=== PATIENT | female | born 1950 | race Caucasian/White ===

== ENCOUNTER 2018-12-05 03:38 | Inpatient (IN) ==
[2018-12-05] MEDS ORDERED: PEPCID IV ONE (04:00)
[2018-12-05] MEDS ORDERED: NS 1,000 ML IV ONE (04:00)
[2018-12-05] MEDS ORDERED: SODIUM CHLORIDE 0.9% INJ ONE (04:00)
--- NOTE | 2018-12-05 04:46 | PROVIDER DOCUMENTATION ---
HPI-General Adult - General Chief Complaint: GI Bleed Stated Complaint: gi bleed Time Seen by Provider: 12/05/18 03:50 Source: patient, EMS Allergies/Adverse Reactions: Patient Allergies Allergy/AdvReac Type Severity Reaction Status Date / Time codeine Allergy ITCHING Verified 07/20/16 15:40 Home Medications: Home Medication List Medication Instructions Recorded Confirmed Last Taken Type Cyanocobalamin 1,000 microgm IM Q7D #0 vial 02/07/16 12/05/18 06/06/18 Rx Docusate Sodium [Colace] 100 mg PO DAILY #0 capsule 02/07/16 12/05/18 06/06/18 Rx Folic Acid 1 mg PO DAILY #0 tablet 02/07/16 12/05/18 06/06/18 Rx Magnesium Hydroxide [Milk of 30 ml PO DAILY PRN PRN #0 udc 02/07/16 12/05/18 Rx Magnesia] Tizanidine [Zanaflex] 4 mg PO QHS #0 tablet 02/07/16 12/05/18 06/06/18 Rx Ranitidine [Zantac] 150 mg PO BID #0 07/22/16 12/05/18 06/06/18 Rx Multivitamin with Iron [Daily 1 each PO DAILY #30 tablet 08/19/16 12/05/1806/06 Rx Vitamin + Iron] Iron Carbonyl/Ascorbic Acid 1 each PO DAILY tablet 05/30/18 12/05/18 06/06/18 Rx [Icar-C] Thiamine [Vitamin B-1] 100 mg PO DAILY tablet 05/30/18 12/05/18 06/06/18 Rx Aripiprazole [Abilify] 2 mg PO QAM #30 tab 06/01/18 12/05/18 06/06/18 Rx Duloxetine [Cymbalta] 60 mg PO DAILY #30 capsule 06/01/18 12/05/18 06/06/18 Rx Trazodone [Desyrel] 50 mg PO QHS #30 tab 06/01/18 12/05/18 06/06/18 Rx Mirtazapine [Remeron] 15 mg PO QHS 12/05/18 12/05/18 Unknown History Polyethylene Glycol 3350 [Miralax] 17 gm PO DAILY 12/05/18 12/05/18 Unknown History - History of Present Illness -Gen Adult Nature of Presenting Problems: 68 y/o F presents to the ED complaining of emesis. Per pt's SNF pt began to complain of abdominal pain and then had several bouts of coffee ground emesis. no fever, no diarrhea, no melena. Does not taken any blood thinners. No fever. Review of Systems - Adult - REVIEW OF SYSTEMS - ADULT Constitutional: denies: chills, fever Eyes: reports: no symptoms reported Ears, Nose, Mouth & Throat: reports: no symptoms reported Cardiovascular: reports: no symptoms reported Respiratory: reports: no symptoms reported Gastrointestinal: reports: abdominal pain, nausea, vomiting. denies: no symptoms reported, diarrhea, rectal bleeding Genitourinary: reports: no symptoms reported Musculoskeletal: reports: no symptoms reported Integumentary: reports: no symptoms reported Neurological: reports: no symptoms reported Psychiatric: reports: no symptoms reported Endocrine: reports: no symptoms reported Hematologic/Lymphatic: reports: no symptoms reported Allergic/Immunologic: reports: no symptoms reported All Other Systems: Reviewed and Negative Past History - Adult - PAST MEDICAL HISTORY-ADULT Review of Records: reports: Old Records Reviewed, Nursing Assessment Review, Medications Reviewed, Social history reviewed & non-contributory. Major Childhood Illnesses: reports: denies history Cardiovascular: reports: CHF Respiratory: reports: denies history Gastrointestinal: reports: denies history Obstetrical/Gynecological: reports: denies history Genitourinary: reports: denies history Musculoskeletal: reports: arthritis, chronic pain, intervertebral disc disease, neck/back injury, osteoporosis, spinal fracture Neurological: reports: denies history Psychiatric: reports: depression, psychiatric problems Endocrine/Immune: reports: denies history Other Conditions: reports: denies history - PRIOR SURGERIES/PROCEDURES Surgical/Procedure History: reports: none - IMMUNIZATION STATUS Childhood Immunizations: See Nurse Assessment Flu Vaccine: See Nurse Assessment - FAMILY HISTORY Family History: reviewed, not pertinent Physical Exam-General - PHYSICAL EXAM-ADULT Initial Vital Signs Reviewed: Yes - CONSTITUTIONAL General Appearance: appears well, alert, no apparent distress - EYES Eyes: PERRL/EOMI - HEAD, EARS, NOSE, MOUTH & THROAT HENMT: normocephalic/atraumatic, moist mucous membranes, normal ENT inspection - NECK Neck: non-tender, full range of motion - RESPIRATORY Respiratory: chest non-tender, lungs clear, normal breath sounds, no respiratory distress - CARDIOVASCULAR Cardiovascular: normal peripheral pulses, regular rate, rhythm, no edema, no JVD - GASTROINTESTINAL (ABDOMEN) Abdominal Exam: soft, tenderness (mild epigastric ttp) - MUSCULOSKELETAL Back Exam: normal inspection, no CVA tenderness, no vertebral tenderness Extremity: normal range of motion, non-tender - SKIN Integumentary: normal color, normal turgor, warm/dry - NEUROLOGIC Neurologic: grossly normal, no motor/sensory deficits - PSYCHIATRIC Psych/Mental Status: normal mood/affect, normal thought content, normal thought process, oriented x 3 Progress - PLAN OF CARE/RESULTS Progress/Plan/Lab Results: Vital Signs - 8 hr 12/05/18 04:06 Pulse Rate 110 H Respiratory Rate 18 Blood Pressure 137/92 O2 Sat by Pulse Oximetry 96 Orders Category Date Time Status IV Insertion ORDERED Care 12/05/18 04:00 Completed CBC WITH ELECTRONIC DIFF [HEME] Stat Lab 12/05/18 04:01 Results COMPREHENSIVE METABOLIC PANEL [CHEM] Stat Lab 12/05/18 04:01 Received LIPASE [CHEM] Stat Lab 12/05/18 04:01 Received OCCULT BLOOD SCREENING [STOOL] Stat Lab 12/05/18 04:39 Uncollected PROTIME WITH INR [COAG] Stat Lab 12/05/18 04:01 Received TYPE & SCREEN [BBK] Stat Lab 12/05/18 04:01 Received 0.9% Sodium Chloride Inj [Ns] 1,000 ml Med 12/05/18 04:00 Active IV 999 mls/hr Famotidine [Pepcid] Med 12/05/18 04:00 Discontinued 20 mg IV NOW ONE Sodium Chloride 0.9% Med 12/05/18 04:00 Discontinued 5 - 10 ml INJ NOW ONE abdominal pain with coffee ground emesis will further evaluate for causes including but not limited to gi bleed, gastritis, pancreatitis, pud, colitis Result Diagrams: 12/05/18 04:01 12/05/18 04:01 - REASSESSMENT Reassessment #1 Status: improving (continued mild epigastric pain but improving, no emesis in the ED. Guiac + with mild anemia but stable vitals. Presentation concering for GI bleed will admit for further evaluation. Discussed case with Dr. Reyes, Hospitalist who will see and admit pt.) Departure - Departure Date of Disposition Decision: 12/05/18 Time of Disposition Decision: 06:14 DIAGNOSIS: GI bleed Qualifiers: GI bleed type/associated pathology: unspecified gastrointestinal hemorrhage type Qualified Code(s): K92.2 - Gastrointestinal hemorrhage, unspecified Disposition: ADMITTED INPATIENT 09 Certified Medical Emergency: Emergent Condition: Fair - Critical Care Note This patient required my direct & personal management of CC.: No Attestation - Physician/ ISIAH Attestation Patient care was provided by Advanced Practice Provider:: No The physician spent face to face time with patient:: Yes Advanced Practice Provider documentation review:: Supervising physician onsite and consulted in the evaluation and care of this patient. The physician did have a face to face encounter with the patient.
[2018-12-05 04:53] LABS: BASO# 0.02 X1000 (0.0-0.2); BASO% 0.2 % (0.0-0.8); EOS# 0.12 X1000 (0.0-0.7); EOS% 1.3 % (0.0-10.0); HEMATOCRIT 31.2 % (37.0-47.0); HEMOGLOBIN 9.8 g/dL (12.0-16.0); IMM GRAN# 0.02 X1000 (0.0-0.04); IMM GRAN% 0.2 % (0.0-0.5); LYMPH# 0.99 X1000 (1.2-3.4); LYMPH% 10.5 % (20.5-51.1); MCH 28.6 PG (27-31); MCHC 31.4 g/dL (33-37); MONO# 0.39 X1000 (0.11-0.59); MONO% 4.1 % (1.7-9.3); MPV 9.3 FL (7.4-10.4); NEUT# 7.89 X1000 (1.4-6.5); NEUT% 83.7 % (42.2-75.2); PLT 383 X1000 (130-400); RBC 3.43 XMIL (4.2-5.4); WBC 9.43 X1000 (4.8-10.8)
[2018-12-05 04:56] LABS: INR 0.91
[2018-12-05 05:08] LABS: ALB/GLOB RATIO 0.9; ALBUMIN 3.4 g/dL (3.5-5.0); CALCIUM 9.5 mg/dL (8.8-10.2); CREATININE 1.3 mg/dL (0.5-0.9); POTASSIUM 4.7 mmol/L (3.5-5.1); TOTAL BILIRUBIN 0.21 mg/dL (0.20-1.00); TOTAL PROTEIN 7.3 g/dL (6.3-8.3)
[2018-12-05] MEDS ORDERED: MORPHINE IV ONE (06:15)
[2018-12-05] MEDS ORDERED: ZOFRAN IV ONE (06:15)
[2018-12-05] MEDS: PROTONIX 80 MG in NS 80 ML IV SCH ×2 (07:55→18:30)
[2018-12-05] MEDS ORDERED: TYLENOL PO PRN (07:57)
[2018-12-05] MEDS ORDERED: NS 1,000 ML IV SCH ×2 (08:00→12:45)
[2018-12-05] MEDS ORDERED: CARAFATE LIQUID PO SCH (08:00)
--- NOTE | 2018-12-05 08:20 | Diag Imaging Result Doc PS360 ---
EXAM: FLAT/UPRIGHT ABD/1 VIEW CHEST HISTORY: sob; abd pain TECHNIQUE: Flat and upright with chest, three views COMPARISON: 06/07/2018 FINDINGS: There is a large hiatal hernia. The lungs are well expanded. Mild increased interstitial markings. No free air beneath the diaphragm. No bowel obstruction although there is stool throughout the colon. No organomegaly. Long-standing arthritis to the right hip. There has been orthopedic surgery to each hip. There are multiple compression fractures in the thoracic and lumbar spine. IMPRESSION: 1.Small bilateral infiltrates/pulmonary edema 2.Constipation 3.Large hiatal hernia Electronically signed by James Rey 12/05/2018 8:17 AM
[2018-12-05 08:27] LABS: IRON SATURATION 16 %; TIBC 222 ug/dL; TOTAL IRON 36 ug/dL (49-151); UNBOUND IRON 186 ug/dL (112-346)
--- NOTE | 2018-12-05 08:50 | EKG Report ---
Test Performed on : 12/05/2018 08:38:15 AM Test Reason : tachycardia Blood Pressure : / mmHG Vent. Rate : 114 BPM Atrial Rate : 114 BPM P-R Int : 150 ms QRS Dur : 066 ms QT Int : 322 ms P-R-T Axes : 016 -25 014 degrees QTc Int : 443 ms Sinus tachycardia. Possible Left atrial enlargement Borderline ECG When compared with ECG of 07-JUN-2018 08:35, premature ventricular complexes. are no longer present Criteria for Septal infarct are no longer present Nonspecific T wave abnormality no longer evident in Anterior leads Confirmed by Errol PARKER, Tom Allen ([id number]) on 12/05/2018 5:39:51 PM
[2018-12-05] MEDS: ABILIFY PO SCH (09:00)
[2018-12-05] MEDS ORDERED: FOLIC ACID PO SCH (09:00)
[2018-12-05] MEDS ORDERED: CYMBALTA PO SCH (09:00)
--- NOTE | 2018-12-05 09:21 | Diag Imaging Result Doc PS360 ---
EXAM: CT THORAX/ABD/PELVIS W/O CON HISTORY: sob; abd pain TECHNIQUE: 1. CT chest without contrast 2. CT abdomen and pelvis without contrast COMPARISON: Chest compared to 05/27/2018 FINDINGS: Chest: There is a large hiatal hernia. Trace pleural fluid. No cardiomegaly. Prominent atherosclerosis. Atelectasis versus tiny infiltrates posteriorly in the left upper lobe. There is scarring in the left lower lobe. Scarring versus atelectasis is also present in the right lower lobe. No consolidation. There are multiple lower thoracic compression fractures. Abdomen and pelvis: No focal hepatic abnormality identified on this noncontrasted exam. Normal spleen. No calcified gallstones or adjacent inflammation. Normal pancreas and adrenal glands. No renal stones. No renal mass identified. No hydronephrosis. There is stool throughout the colon. The bowel loops are not dilated. No inflammation in the right lower quadrant. No abscess. The urinary bladder is distended and appears normal. Uterus is not enlarged. There is metallic artifact in the pelvis from orthopedic hardware in the hips. The bones are osteopenic. There are compression fractures of L1, L2, and L4 vertebra. IMPRESSION: Chest: 1. Large hiatal hernia 2. Trace pleural fluid 3. Bilateral atelectasis and fibrosis with questionable small infiltrates 4. Multiple thoracic compression fractures Abdomen and pelvis: 1. Mild constipation 2. The bones are osteopenic and there are multiple compression fractures This exam was performed using automated exposure control, adjustment of mA or kV according to patient size, and/or use of iterative reconstruction technique. Electronically signed by James Rey 12/05/2018 9:18 AM
[2018-12-05] MEDS: VITAMIN B-1 PO SCH (09:30)
[2018-12-05] MEDS: ZANTAC PO SCH ×2 (09:35→20:46)
[2018-12-05] MEDS: THERA M PLUS PO SCH (09:35)
[2018-12-05] MEDS: ICAR-C PO SCH (09:35)
[2018-12-05] MEDS: COLACE PO SCH (09:45)
[2018-12-05] MEDS: MIRALAX PO SCH (09:50)
[2018-12-05] MEDS: ATROVENT NEB INH SCH ×2 (10:14→15:49)
[2018-12-05] MEDS: XOPENEX NEB INH SCH ×2 (10:15→15:50)
[2018-12-05 10:54] LABS: HEMATOCRIT 27.5 % (37.0-47.0); HEMOGLOBIN 8.4 g/dL (12.0-16.0)
[2018-12-05] MEDS ORDERED: MORPHINE IV PRN (12:39)
[2018-12-05 12:43] LABS: URINE SOURCE CATH
--- NOTE | 2018-12-05 12:49 | HISTORY AND PHYSICAL ---
PRIMARY CARE PROVIDER: Dr. George. CHIEF COMPLAINT: Nausea, vomiting, coffee-ground emesis. HISTORY OF PRESENT ILLNESS: Ms. Gay Rosales is a 68-year-old, female, with a medical history of hypertension, some psychiatric issues, questionable congestive heart failure, GERD, large hiatal hernia, esophageal stricture with duodenal ulcer, CKD stage IIIA, history of alcohol use, severe osteoporosis with multiple thoracic lumbar fractures, and iron-deficiency anemia who presents with complaint of abdominal pain in the bilateral upper quadrants with nausea and vomiting that started around 6:00 p.m. up until 2:00 a.m. that was coffee ground in color. She continues with the nausea and the stomach pains. She had a stool sample sent that showed positive for occult blood. Her hemoglobin and hematocrit are slightly low at 9 and 31. Currently, vital signs are stable. She is a little tachycardic. Imaging does not show any obvious source of bleed, but there is a history of EGD February [address] Camilo that showed she had a duodenal ulcer which could be a source. She is not on any anticoagulant. She has not been taking ibuprofen or any other erosive type medication. She actually stopped drinking May of 2018. She states that she did have one other spell where she vomited coffee-ground emesis a few months ago and not too long after she started staying at her [facility] in May of 2018. She still has right upper and left upper quadrant abdominal pain. We will admit. Could be a duodenal ulcer that is bleeding, so we will consult Dr. Camilo who has seen this patient before. We will transfer to [facility] for close observation. Start her on some clear liquids and Protonix drip. PAST MEDICAL HISTORY: 1. Hypertension. 2. Psychiatric issues. 3. Questionable congestive heart failure. 4. GERD with large hiatal hernia. 5. 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 6. Esophageal stricture February of 2016. 7. History of alcohol abuse. Quit May of 2018. 8. Osteoporosis with chronic left sacral and inferior pubic rami fracture and multiple thoracolumbar compression fractures. 9. Iron-deficiency anemia. May of 2018 received 2 packs of red blood cells. 10.CKD stage IIIA. PAST SURGICAL HISTORY: 1. Bilateral hip replacement. 2. Appendectomy. 3. Tonsillectomy. 4. Tubal ligation. 5. EGD by Dr. Camilo February of 2016 for food impaction. Results showed severe esophagitis, large hiatal hernia, esophageal stricture, duodenal ulcer and duodenal stenosis. SOCIAL HISTORY: Quit smoking in 2011, but prior to that she smoked on and off since the age of 19, about a pack per day. She was drinking around 3 ounces of alcohol usually Tequila with a ismael daily upon until May of 2018. Denies any illicit drug use. She has currently been living in [facility] since May of 2018. FAMILY HISTORY: Lymphoma in her dad. But no heart disease or diabetes in first-degree relatives. ALLERGIES: Codeine. HOME MEDICATIONS: 1. Remeron 15 mg p.o. nightly. 2. MiraLAX 17 g p.o. daily. 3. Zanaflex 4 mg p.o. nightly. 4. Trazodone 50 mg p.o. nightly. 5. Abilify 2 mg p.o. daily. 6. Cyanocobalamin 1000 mcg IM q.7 days. 7. Colace 100 mg p.o. daily. 8. Cymbalta 60 mg p.o. daily. 9. Folic acid 1 mg p.o. daily. 10.ICAR-C 1 tablet p.o. daily. 11.Milk of Magnesia as needed. 12.Multivitamin with iron once daily. 13.Zantac 150 mg p.o. b.i.d. 14.Vitamin B1 Thiamine 100 mg p.o. daily. REVIEW OF SYSTEMS: A 14 point review of systems are completed and negative except as those mentioned above in HPI. Positive are nausea, vomiting of coffee-ground emesis from 6:00 p.m. to 2:00 a.m. bilateral upper quadrant pain that has been on and off. Bowel movements about once every other day, sometimes with incontinence. Small bowel movement today. Appetite has been around 50% or less per meal t.i.d. She states she has gained weight in the last six months. She apparently has gone from 77 pounds to 101 pounds. She denies any fever or chills, or coughing up any phlegm. She denies any shortness of breath or chest pain. PHYSICAL EXAM: VITAL SIGNS: Temperature 98.6 degrees Fahrenheit, heart rate 113 sinus tachycardia, respiratory rate 18, blood pressure 139/89. O2 saturation 97% on 2 L nasal cannula. Height: 5 feet 1 inch tall. Weight 101 pounds. BMI of 19.1. GENERAL: Ms. Gay Rosales is a 68-year-old, female. She is in no acute distress. She is able to answers questions appropriately. HEENT: Atraumatic, normocephalic. Pupils are equal, round and reactive to light. Extraocular movements intact. Mucous membranes are dry. NECK: Trachea is midline. CARDIOVASCULAR: S1, S2, tachycardic rate rhythm. No rubs, gallops or murmurs. No lower extremity edema. Plus 2 dorsalis and radial pulses. Negative JVD or carotid bruits. PULMONARY: Clear to auscultation with bilateral breath sounds. No accessory muscle use or work of breathing noted. Tolerating 2 L nasal cannula. GASTROINTESTINAL: Soft. Tender bilateral upper quadrants. Nondistended. Positive bowel sounds x4 but hypoactive. EXTREMITIES: Moves all extremities equally with decreased range of motion. Generalized weakness noted. NEUROLOGIC: Oriented x3. Follows commands. Sensory is intact. SKIN: Pale, warm, dry and intact. LABORATORY DATA: White blood cells 9.0, hemoglobin 9.0, hematocrit 31, platelet count 383,000. INR 0.91. PTT is 33. Sodium 141, potassium 4.7, BUN 23, creatinine 1.3, glucose 109, calcium 9.5. Iron is 36. Total iron binding capacity 222. Saturation 16. Unsaturated iron binding is 186. Ferritin 58. Bilirubin 0.21. AST 16. ALT 9. ProBNP 1954. Albumin 3.4. Lipase is 19. Vitamin B12 greater than 2000. Folate greater than 40. IMAGIN. Chest and abdominal x-ray: Impression: Small bilateral infiltrates or pulmonary edema, constipation, large hiatal hernia. 2. CT of the chest, abdomen and pelvis without contrast shows in the chest large hiatal hernia, trace pleural fluid, bilateral atelectasis and fibrosis with questionable small infiltrates. Multiple thoracic compression fractures. Abdomen and pelvis shows mild constipation. The bones are also osteopenic and there are multiple compression fractures. 3. EKG sinus tachycardia. Rate is 114, QTc 443. IMPRESSION AND PLAN: 1. Gastrointestinal bleed likely due to duodenal ulcer as she has had a history of duodenal ulcer. CT showed constipation. X-ray shows constipation. She has been having coffee-ground emesis since between 6:00 p.m. yesterday to 2:00 a.m. this morning. Improved with Zofran and Pepcid that she received IV. She is still having pain in the bilateral upper quadrants. She has been started on Protonix drip, Carafate, and clear liquids. Gastroenterology, Dr. Camilo, who has seen her in the past will be consulted. We will do serial hemoglobin and hematocrit and transfuse for hemoglobin less than 8.0. 2. Iron-deficiency anemia with current blood-loss anemia secondary to GI bleed. She has a current type and screen. Blood pressure is stable. No need for transfusion at this time. We will continue her iron supplementations. Her iron level is slightly low at 36. We will stop her folic acid as her folate is greater than 40. Vitamin B12 is also greater than 2000. 3. Acute kidney injury on top of chronic kidney disease stage IIIA. BUN and creatinine are 23 and 1.3 with a GFR of 40. Baseline is 0.9 up to 1.2 on the creatinine. She will receive gentle IV fluid hydration and we will repeat in the morning. 4. Questionable congestive heart failure. There is no echocardiogram to review. ProBNP is 1954. There was some question of infiltrate, possible pulmonary edema on imaging. So we will get an echocardiogram to fully evaluate. There were no crackles upon auscultation. She does not take any diuretics at home. 5. Protein calorie malnutrition. She is actually improved. She went from 77 pounds up to 101 pounds over the last six months. Albumin level is 3.4. She eats 50% or less per meal. We will continue to monitor. 6. Severe osteoporosis with multiple thoracolumbar compression fractures. Also chronic left sacral and inferior pubic rami fracture with repair of both hips in the past. No new fractures this admission. She has been started on a Proton-pump inhibitor this admission. May have to switch over to something else given the severe osteoporosis. 7. Gastroesophageal reflux disease with large hiatal hernia. She is on a Protonix drip. 8. Hypertension. No home medications for this. Blood pressure is finally stable. It was 150s to 160s and it is down to 130s now. We will monitor. 9. Psychiatric issues. She is likely with depression. She takes Abilify, Desyrel, Remeron and Cymbalta. We will continue those medications. 10.Deep venous thrombosis prophylaxis. SCDs. Dictated by CHAKA Coburn for Maggi May MD cc: MD Etelvina Vivas CRNP Katherine Takundwa, MD
[2018-12-05 12:53] LABS: BILIRUBIN URINE NEGATIVE (NEGATIVE); BLOOD URINE NEGATIVE (NEGATIVE); COLOR YELLOW; GLUCOSE URINE NEGATIVE (NEGATIVE); KETONE URINE NEGATIVE (NEGATIVE); LEUKOCYTES URINE LARGE (NEGATIVE); NITRITE URINE NEGATIVE (NEGATIVE); PROTEIN URINE NEGATIVE (NEGATIVE); TURBIDITY URINE HAZY (CLEAR); UROBILINOGEN URINE NORMAL (NORMAL)
[2018-12-05 12:55] LABS: UR EPITHELIAL CELLS <10 /HPF (<10); URINE BACTERIA 4+ /HPF; URINE RBC <10 /HPF (<10); URINE WBC TNTC /HPF (<10)
[2018-12-05 13:00] LABS: UR CREAT RANDOM 34.9 mg/dL (11-20)
[2018-12-05] MEDS: ZOFRAN IV PRN ×2 (14:09→20:44)
[2018-12-05 15:39] LABS: HEMATOCRIT 24.4 % (37.0-47.0); HEMOGLOBIN 7.7 g/dL (12.0-16.0)
[2018-12-05] MEDS ORDERED: LASIX IV ONE (15:45)
--- NOTE | 2018-12-05 16:52 | ECHO REPORT ---
ORDER DATE: 12/05/2018 INDICATIONS: Chest pain, pulmonary edema, tachycardia. M-MODE MEASUREMENTS: Left ventricle end diastole: 3.2 cm. Left ventricle end systole: 1.8 cm. Posterior wall: 1.0 cm. Interventricular septum: 1.0 cm. Left atrium: 3.7 cm. Aortic root: 3.5 cm. SUMMARY OF 2-DIMENSIONAL IMAGIN. The left ventricular function is normal. Ejection fraction is estimated at 65% to 70%. No wall motion abnormality is noted. The patient appears to be tachycardic. The left ventricular function appears to be hyperdynamic. 2. The right ventricle appears to be normal. Left atrium may be slightly enlarged. There is no pericardial effusion. 3. Mitral valve shows calcification of the annulus. Color flow mapping indicates mild degree of regurgitation. 4. Aortic valve shows calcification of the cusp. Maximum gradient across the outflow tract of the left ventricle is 17 mmHg. Mean gradient is 10 mmHg. That would just indicated some thickening of the aortic valve with sclerosis. No definite significant stenosis. 5. Pulse wave Doppler of mitral inflow shows reversal of the E/A ratio. Ratio is 0.7. 6. Tissue Doppler of septal and lateral mitral annulus averages 6 cm. 7. There is impaired left ventricular relaxation. 8. Tricuspid valve shows mild degree of regurgitation. 9. Pulmonary artery pressure estimated at 34 mmHg. 10.Pulmonic valve is normal. 11.There is no pericardial effusion, mass and no thrombus. SUMMARY: In summary, this study shows: 1. Hyperdynamic left ventricle. 2. Sclerosis of the aortic valve without definite stenosis. 3. Impaired left ventricular relaxation. 4. Pulmonary pressure of 34 mmHg. Clinical correlation recommended. cc: MD Etelvina Oates CRNP
[2018-12-05] MEDS: ZOSYN 3.375 GM in NS 50 ML IV SCH ×3 (16:53→23:25)
[2018-12-05] MEDS: ZANAFLEX PO SCH (20:44)
[2018-12-05] MEDS: DESYREL PO SCH (20:46)
[2018-12-05] MEDS: REMERON PO SCH (20:46)
[2018-12-05] MEDS: MORPHINE IV PRN (21:10)
--- NOTE | 2018-12-06 00:03 | CONSULTATION ---
DATE OF CONSULTATION: 12/05/2018 REASON FOR CONSULTATION: Nausea, vomiting, hematemesis. HISTORY OF PRESENT ILLNESS: This is a 68-year-old white female, who reports onset of symptoms yesterday evening around 6 p.m. She reports multiple episodes of emesis last evening, with associated abdominal pain. She had reported dark emesis, described as coffee ground. She denies fevers. She denies blood in her stool. She does report constipation versus diarrhea. She denies reflux or heartburn. She takes Zantac at home. She resides at [facility]. On evaluation, she was found to have mild anemia. Hemoccult of emesis was positive. PAST MEDICAL HISTORY: Hypertension, psychiatric issues, congestive heart failure, GERD, hiatal hernia, history of duodenal ulcer in February 2016, history of esophageal stricture, with dilation in February 2016, history of alcohol abuse, reported quitting in May 2018, osteoporosis, history of anemia, history of chronic kidney disease. PAST SURGICAL HISTORY: Bilateral hip replacement, appendectomy, tonsillectomy, tubal ligation. EGD in [address] Lubin showed foreign body removal, esophagitis, hiatal hernia, esophageal stricture, duodenal ulcer. ALLERGIES: Codeine, causing itching. HOME MEDICATIONS: Abilify 2 mg daily, vitamin B12 IM every 7 days, Colace 100 mg daily, Cymbalta 60 mg daily, folic acid 1 mg daily, iron 1 daily, milk of magnesia 30 mL as needed, Remeron 15 mg every night, multivitamin with iron daily, MiraLAX 17 g daily, Zantac 150 mg twice a day, vitamin B1 daily, Zanaflex 4 mg every night, Desyrel 50 mg every night. SOCIAL HISTORY: No reported tobacco use. History of alcohol use, apparently quit in May 2018. She currently resides at [facility]. REVIEW OF SYSTEMS: Per history of present illness. PHYSICAL EXAMINATION: Vital Signs: Temperature 98.2 degrees, pulse 109, respirations 22, blood pressure 126/69. General: The patient is awake and alert. No acute distress. HEENT: Pupils equal, round, reactive to light. Sclerae nonicteric. Conjunctiva pale. Skin is pale. Cardiovascular: Regular rate and rhythm. Pulmonary: Lung sounds essentially clear bilaterally. Abdomen: Soft, with some tenderness to palpation. Otherwise, positive bowel sounds. Extremities: No lower extremity edema noted. Neurologically: Cranial nerves 2-12 grossly intact. LABORATORY: Hematology: WBC 9.43, hemoglobin 7.7, hematocrit 24.4, MCV 91.0, platelet 383,000. Coagulation: Pro time 13.0, INR 0.91, PTT 33. Chemistry: Sodium 141, potassium 4.7, chloride 105, CO2 of 23, BUN 23, creatinine 1.3, glucose 109, iron 36, TIBC 222, percent saturation 16, total bilirubin 0.21, AST 16, ALT 9, alkaline phosphatase 101, proBNP 1954, albumin 3.4, vitamin B12 greater than 2000, folate greater than 40. ASSESSMENT AND PLAN: 1. Hematemesis. 2. Anemia. 3. History of duodenal ulcer in 2016. 4. Chronic kidney disease versus acute kidney injury. 5. Protein calorie malnutrition. 6. Iron deficiency anemia. Patient's hemoglobin and hematocrit have dropped since admission. We will transfuse 2 units of packed red blood cells, continue proton pump inhibitor, monitor for any further active bleeding. We had initially planned due to OR scheduling to proceed with EGD on Wednesday, but this may have to be done sooner if she has any active bleeding or hemoglobin and hematocrit drop further. Again, we will transfuse 2 units of packed red blood cells. Further plans to be made according to her progress. I have discussed this case with Dr. Lubin. Thank you for this consultation. Dictated by CHAKA Khan for Layo Lubin MD cc: CHAKA Rodriguez MD
[2018-12-06] MEDS: XOPENEX NEB INH SCH ×6 (00:32→21:46)
[2018-12-06] MEDS: ATROVENT NEB INH SCH ×6 (00:32→21:46)
[2018-12-06] MEDS: MORPHINE IV PRN ×3 (03:24→16:03)
[2018-12-06] MEDS: PROTONIX 80 MG in NS 80 ML IV SCH ×4 (04:01→22:42)
[2018-12-06] MEDS: ZOSYN 3.375 GM in NS 50 ML IV SCH ×5 (04:01→21:26)
[2018-12-06 04:42] LABS: INR 1.05; PROTIME 14.5 Seconds (11.0-16.0)
[2018-12-06 04:43] LABS: PTT 35.6 Seconds (22.3-41.8)
[2018-12-06 05:03] LABS: ALB/GLOB RATIO 0.9; ALBUMIN 2.9 g/dL (3.5-5.0); CREATININE 1.4 mg/dL (0.5-0.9); MAGNESIUM 1.8 mg/dL (1.5-2.7); POTASSIUM 4.4 mmol/L (3.5-5.1); TOTAL BILIRUBIN 0.62 mg/dL (0.20-1.00); TOTAL PROTEIN 6.2 g/dL (6.3-8.3)
[2018-12-06 05:06] LABS: BASO# 0.01 X1000 (0.0-0.2); BASO% 0.1 % (0.0-0.8); EOS# 0.21 X1000 (0.0-0.7); EOS% 2.8 % (0.0-10.0); HEMATOCRIT 33.7 % (37.0-47.0); LYMPH# 2.01 X1000 (1.2-3.4); LYMPH% 26.8 % (20.5-51.1); MCH 29.6 PG (27-31); MCHC 32.6 g/dL (33-37); MCV 90.6 FL (81-99); MONO# 0.55 X1000 (0.11-0.59); MONO% 7.3 % (1.7-9.3); MPV 8.9 FL (7.4-10.4); NEUT# 4.72 X1000 (1.4-6.5); PLT 245 X1000 (130-400); RBC 3.72 XMIL (4.2-5.4); RDW 15.1 % (11.5-14.5)
[2018-12-06] MEDS: ABILIFY PO SCH (08:41)
[2018-12-06] MEDS: THERA M PLUS PO SCH (08:41)
[2018-12-06] MEDS: ZANTAC PO SCH ×2 (08:41→20:34)
[2018-12-06] MEDS: MIRALAX PO SCH (08:41)
[2018-12-06] MEDS: ICAR-C PO SCH (08:41)
[2018-12-06] MEDS: COLACE PO SCH (08:42)
[2018-12-06] MEDS: CYMBALTA PO SCH (08:42)
[2018-12-06] MEDS: VITAMIN B-1 PO SCH (08:42)
--- NOTE | 2018-12-06 08:46 | PROGRESS NOTE ---
DATE: 12/06/2018 ECHOCARDIOGRAM: FINDINGS: 1. Hyperdynamic left ventricle. 2. Sclerosis of the aortic valve without definite stenosis. 3. Impaired left ventricular relaxation. 4. Pulmonary pressure of 34 mmHg. 5. Left ventricular ejection fraction estimated 65% to 70%. 6. No wall motion abnormality. 7. Right ventricle appeared normal. cc: Maximino Leija MD
--- NOTE | 2018-12-06 09:05 | PROGRESS NOTE ---
DATE: 12/06/2018 SUBJECTIVE: Ms. Rosales is a patient of Dr. Keagan Bolden and primary care provider also, Dr. George. She came in with nausea, vomiting and coffee-ground emesis. A 68 year old with past medical history of hypertension, some psychiatric issues, questionable congestive heart failure, gastroesophageal reflux disease, large hiatal hernia, esophageal stricture, duodenal ulcer, chronic kidney disease stage IIIA, history of alcohol use, severe osteoporosis, multiple thoracic lumbar fractures and iron deficiency anemia, who presented with complaints of abdominal pain bilateral upper quadrant with nausea and vomiting. She vomited some coffee-ground color. She has been having nausea and dyspepsia. She says she has not been able to eat very much for a length of time for several weeks. She has a history of having an EGD in February [address] Lubin. She had a duodenal ulcer which could have been the source of her bleed. She is not on any anticoagulant. She has not been taking any nonsteroidal anti-inflammatories, and actually stopped drinking alcohol in May 2018. She did have another spell. She vomited coffee-ground emesis a few months ago. She is staying at [facility] since May of 2018. PAST MEDICAL HISTORY: Once again, review of past medical history: 1. Hypertension. 2. Psychiatric issues. 3. Questionable congestive heart failure. 4. Gastroesophageal reflux disease with large hiatal hernia. 5. 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 6. Esophageal stricture of February 2016. 7. Alcohol abuse, quit in May 2018. 8. Osteoporosis with chronic left sacral and inferior pubic rami fracture, and multiple thoracolumbar compression fractures. 9. Iron deficiency anemia. In May of 2018, she received 2 packs of red blood cells. 10. Chronic kidney disease. PAST SURGICAL HISTORY: Bilateral hip replacement, appendectomy, tonsillectomy, tubal ligation. EGD per Dr. Lubin February 2016 for food impaction; result showed severe esophagitis, large hiatal hernia, esophageal stricture, duodenal ulcer and duodenal stenosis. CT of chest and abdomen and pelvis shows large hiatal hernia, trace pleural effusion, bilateral atelectasis, fibrosis, questionable small infiltrates, multiple thoracic compression fractures. Abdominal pelvis showed mild constipation. The bones are also osteopenic with multiple compression fractures. So, suspect a duodenal or upper gastrointestinal bleed. PHYSICAL EXAMINATION: Vital Signs: Today, she is awake and alert. She says she still is a little uncomfortable in the epigastric area. Temperature 98.3 degrees, pulse 91, respirations 18, blood pressure 118/65. Eyes: Pupils are equal and round. Lungs: Clear in all lung cortes. Cardiovascular exam: Regular rhythm and rate without murmur or S3. Abdomen: Soft. Skin: Warm and dry. : Urine output 800 mL. ASSESSMENT AND PLAN: 1. Hematemesis. 2. Anemia. Hematocrit when she came in was 31, hemoglobin 9.8. Hematocrit this morning is 33, hemoglobin 11. Note that hemoglobin had dropped down to 7.7. She was transfused I believe 2 units packed red blood cells. She is on proton pump inhibitor. Plan to do an EGD on Wednesday I believe, or sooner if she has any more aggressive bleeding. She reports she is hungry, so we will keep her on liquids for now unless Gastroenterology decides to advance it. 3. History of chronic kidney disease stage IIIA. Her creatinine is 1.4. Had good urine output. 4. Osteoporosis. Multiple compression fractures. Pelvic fractures which are old. 5. Iron deficiency anemia with current blood-loss anemia secondary to gastrointestinal bleed. 6. History of congestive heart failure. Echocardiogram: There is no old echocardiogram to review. She did have some pulmonary effusion on CT scan and some areas of questionable fibrosis. So, plan is to get an echocardiogram. 7. Protein calorie malnutrition, which apparently has improved. Albumin level is 3.4. She went from 77 pounds to 101 pounds over the last 6 months. 8. Gastroesophageal reflux disease. Large hiatal hernia. 9. Hypertension. Blood pressure appears well controlled. 10. Psychiatric issues which is likely depression. She is on Abilify, does reveal Remeron, Cymbalta. Will continue these medications. 11. Deep vein thrombosis prophylaxis on sequential compression devices. REVIEW OF HER ORDERS: She is on Remeron 15 mg at bedtime, Zanaflex 4 mg at bedtime, Desyrel 50 mg at bedtime, Abilify 2 mg q.a.m., Colace 100 mg a day, Cymbalta 60 mg a day ipratropium bromide 0.5 mg inhaler q. 6 hours, iron carbonyl, ascorbic acid one a day, Xopenex inhaler or nebulized treatment 1 inhalation q. 6 hours, morphine 2 mg IV q. 4 hours p.r.n., multivitamin 1 a day, Zofran 4 mg IV q. 4 hours p.r.n., Protonix 40 mg IV q. 12 hours, polyethylene glycol 17 g daily. In addition, she is on a Protonix drip 10 mL an hour, Zantac 150 mg b.i.d., thiamine 100 mg daily. She is getting Zosyn 3.375 g IV q. 6 hours, Pepcid of which she received 1 dose, Lasix of which she received 1 dose 40 mg IV. cc: Maximino Leija MD
[2018-12-06 10:16] LABS: HEMOGLOBIN 11.3 g/dL (12.0-16.0)
--- NOTE | 2018-12-06 11:25 | PROGRESS NOTE ---
DATE: 12/06/2018 SUBJECTIVE: The patient is sitting up on the side of the bed, in no acute distress. OBJECTIVE: Vital signs: Temperature 98.3 degrees, pulse 94, respirations 14, blood pressure 118/65. General: Patient is awake, alert, in no acute distress. LABORATORY DATA: Hematology: Hemoglobin 11.3, hematocrit 35.0. This is after 2 units of packed red blood cells. ASSESSMENT AND PLAN: 1. Hematemesis. 2. Anemia. 3. History of duodenal ulcer in 2016. 4. Chronic kidney disease versus acute kidney injury. 5. Protein-calorie malnutrition. 6. Iron deficiency anemia. Hemoglobin and hematocrit have improved after packed red blood cells. Continue to monitor for any further active bleeding. Monitor hemoglobin and hematocrit, and transfuse further packed red blood cells as needed. Will proceed with EGD for further evaluation. That will plan to be done on Wednesday. Further plans will be made according to findings. The patient voices understanding of the procedure along with benefits and risks. I have discussed this case with Dr. Lubin. Dictated by CHAKA Khan for Layo Lubin MD cc: CHAKA Rodriguez MD
[2018-12-06 16:19] LABS: HEMOGLOBIN 10.8 g/dL (12.0-16.0)
[2018-12-06] MEDS: DESYREL PO SCH (20:34)
[2018-12-06] MEDS: ZANAFLEX PO SCH (20:34)
[2018-12-06] MEDS: REMERON PO SCH (20:34)
[2018-12-06 21:44] LABS: HEMATOCRIT 30.2 % (37.0-47.0); HEMOGLOBIN 9.8 g/dL (12.0-16.0)
[2018-12-07] MEDS: ATROVENT NEB INH SCH ×4 (03:00→21:23)
[2018-12-07] MEDS: XOPENEX NEB INH SCH ×4 (03:00→21:23)
[2018-12-07] MEDS: ZOSYN 3.375 GM in NS 50 ML IV SCH ×5 (03:24→23:19)
[2018-12-07 05:34] LABS: BASO# 0.01 X1000 (0.0-0.2); BASO% 0.2 % (0.0-0.8); EOS# 0.34 X1000 (0.0-0.7); HEMATOCRIT 31.2 % (37.0-47.0); HEMOGLOBIN 10.2 g/dL (12.0-16.0); IMM GRAN# 0.03 X1000 (0.0-0.04); IMM GRAN% 0.5 % (0.0-0.5); LYMPH% 19.5 % (20.5-51.1); MCH 29.6 PG (27-31); MCHC 32.7 g/dL (33-37); MCV 90.4 FL (81-99); MONO# 0.54 X1000 (0.11-0.59); MONO% 9.6 % (1.7-9.3); MPV 9.1 FL (7.4-10.4); NEUT# 3.62 X1000 (1.4-6.5); NEUT% 64.2 % (42.2-75.2); PLT 241 X1000 (130-400); RBC 3.45 XMIL (4.2-5.4); RDW 15.4 % (11.5-14.5); WBC 5.64 X1000 (4.8-10.8)
[2018-12-07 06:25] LABS: CREATININE 1.6 mg/dL (0.5-0.9); POTASSIUM 4.2 mmol/L (3.5-5.1)
[2018-12-07] MEDS: PROTONIX 80 MG in NS 80 ML IV SCH ×3 (08:21→19:39)
--- NOTE | 2018-12-07 08:40 | PROGRESS NOTE ---
DATE: 12/07/2018 SUBJECTIVE: The patient is awake and alert. She has not any more problems. She is wanting to go home today. OBJECTIVE: Vital signs: Temp 98.1 degrees, pulse 97, respirations 16, blood pressure 137/71. Pupils: Are equal and round. Lungs: Clear in all lung cortes. Cardiovascular: Regular rate without murmur or S3. Abdomen: Soft. Skin: Warm and dry. Urine output 2600 mL. Remained in sinus rhythm on monitor. ASSESSMENT AND PLAN: 1. Hematemesis. She is scheduled for an esophagogastroduodenoscopy today. I explained she will need to go back to [place]. She is from [facility]. Hopefully, we can get her home tomorrow or the next day. They are planning an EGD. She has an anemia and a history of duodenal ulcer back in 2016. 2. Chronic kidney disease versus acute kidney injury. Her creatinine is hovering between 1.4 and 1.6. 3. Protein calorie malnutrition. I would like to advance her diet after esophagogastroduodenoscopy. 4. Iron deficiency anemia. Hemoglobin and hematocrit have improved. She did get a transfusion. Proceed with esophagogastroduodenoscopy today. 5. Review of her orders. She is getting Remeron 15 mg at bedtime. Getting Zanaflex 4 mg at bedtime, Desyrel 50 mg at bedtime, Abilify 2 mg q.a.m., Colace 100 mg daily, Cymbalta 60 mg a day, iron carbonyl 1 a day, multivitamin 1 a day, MiraLAX 17 g daily. She is on a Protonix drip. She is on Zantac 150 mg b.i.d., thiamine 100 mg daily, and we are giving her Zosyn 3.375 grams IV q.6. I am going to repeat another chest x-ray. She had an echocardiogram done on the . She has a hemodynamic left ventricle, sclerosis of the aortic valve without definite stenosis, impaired left ventricular relaxation, pulmonary pressure 34 mmHg. So looking at her hematocrit is stable. cc: Maximino Leija MD
[2018-12-07] MEDS: MORPHINE IV PRN ×2 (09:24→20:32)
[2018-12-07] MEDS ORDERED: DIPRIVAN 1% ONE ×2 (11:35→16:06)
[2018-12-07] MEDS ORDERED: XYLOCAINE-MPF 2% ONE (11:36)
[2018-12-07] MEDS: ZOFRAN IV PRN (17:14)
[2018-12-07] MEDS: COLACE PO SCH (17:15)
[2018-12-07] MEDS: ABILIFY PO SCH (17:15)
[2018-12-07] MEDS: CYMBALTA PO SCH (17:15)
[2018-12-07] MEDS: MIRALAX PO SCH (17:16)
[2018-12-07] MEDS: VITAMIN B-1 PO SCH (17:16)
[2018-12-07] MEDS: THERA M PLUS PO SCH (17:16)
[2018-12-07] MEDS: ICAR-C PO SCH (17:16)
[2018-12-07] MEDS: REMERON PO SCH (20:20)
[2018-12-07] MEDS: DESYREL PO SCH (20:20)
[2018-12-07] MEDS: ZANAFLEX PO SCH (20:20)
[2018-12-08] MEDS: ZOSYN 3.375 GM in NS 50 ML IV SCH (02:55)
[2018-12-08] MEDS: XOPENEX NEB INH SCH ×4 (03:28→21:00)
[2018-12-08] MEDS: ATROVENT NEB INH SCH ×4 (03:28→21:00)
[2018-12-08] MEDS: PROTONIX 80 MG in NS 80 ML IV SCH (04:43)
--- NOTE | 2018-12-08 06:49 | OPERATIVE NOTE ---
PROCEDURE DATE: 12/07/2018 PROCEDURE PERFORMED: Esophagogastroduodenoscopy and esophageal dilation. MEDICATION USED: MAC as per Anesthesia. SCOPE USED: Pentax gastroscope. PREOPERATIVE DIAGNOSES: 1. Anemia. 2. Hematemesis. POSTOPERATIVE DIAGNOSES: 1. Esophageal stricture/ring, dilated. 2. 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 HISTORY: This 68-year-old, white female admitted to the hospital with multiple medical problems was found to be anemic. She had a history of an upper GI bleed/hematemesis. An EGD was done for diagnostic as well as therapeutic purposes. DESCRIPTION OF PROCEDURE: Informed consent was obtained from the patient. The procedure, risks, benefits, and alternatives were explained in layman's terms. She understood. All her pertinent questions were answered. The patient was brought to the endoscopy unit and was premedicated as per Anesthesia. After adequate sedation, while she was lying in the left lateral position, the gastroscope was introduced into the posterior pharynx and advanced under direct vision into the esophagus. The esophagus was slightly tortuous. Right at about 28 cm, the GE junction was noted. There was a tight stricture or esophageal ring noted. The esophageal ring noted was a thickened ring. Again, it was at 28 cm. There was an 8 to 9 cm long hiatal hernia noted. The hiatal hernia was a mixed type with a paraesophageal component. The stomach that was pulled into the chest appeared to have an axial rotation. I did not see any ulcer, tumor, or masses in the upper part of the stomach. The scope was then passed in the distal stomach, which appeared to be normal. The scope was then passed through a normal pylorus, into the duodenal bulb, and then to the second portion of duodenum which appeared to be normal. The scope was withdrawn to the stomach. Retroflexed view of the stomach confirmed the presence of a giant hiatal hernia. I did not see any Nilesh lesions. Scope was withdrawn into the esophagus where the ring was dilated using a TTS balloon. I dilated the esophagus up to 18 mm without any difficulty. A small mucosal rent was noted and there was a mild to moderate amount of heme noted. Scope was then removed. The patient tolerated the procedure well. No complications were noted. Patient was then transferred to the recovery area in a stable condition. IMPRESSION: 1. Esophageal ring, dilated. 2. Giant hiatal hernia with axial malrotation. 3. Otherwise normal esophagogastroduodenoscopy. I did not see any ulcer, tumor, or masses. RECOMMENDATIONS: Continue proton pump inhibitor. She is already on Protonix. I would start her on a full liquid diet to begin with and advance diet as tolerated. She will benefit from Carafate 1 g p.o. t.i.d. before meals at least for a week. Advised her to follow up with me after discharge. cc: Layo Lubin MD
[2018-12-08] MEDS: ABILIFY PO SCH (08:23)
[2018-12-08] MEDS: PROTONIX IV SCH ×2 (08:23→22:16)
[2018-12-08] MEDS: MIRALAX PO SCH (08:23)
[2018-12-08] MEDS: THERA M PLUS PO SCH (08:24)
[2018-12-08] MEDS: ICAR-C PO SCH (08:24)
[2018-12-08] MEDS: VITAMIN B-1 PO SCH (08:24)
[2018-12-08] MEDS: CYMBALTA PO SCH (08:24)
[2018-12-08] MEDS: COLACE PO SCH (08:24)
--- NOTE | 2018-12-08 09:10 | PROGRESS NOTE ---
DATE: 12/08/2018 SUBJECTIVE: Ms. Rosales is awake and alert. She feels good. She still has her Lou catheter in and has a nasal cannula in place. She has not had any further signs of bleeding. PHYSICAL EXAMINATION: Vital Signs: Temperature 98.0 degrees, pulse 87, respirations 18, blood pressure 135/71. HEENT: Pupils are equal. Conjunctivae pink. Lungs: Clear in all lung cortes. Cardiovascular Examination: Regular rhythm and rate without murmur or S3. Abdomen: Soft. Skin: Warm, dry. LABORATORY DATA: Hematocrit is stable at 31, hemoglobin is 10. Chemistries: Sodium 144, potassium 4.2, chloride 110, BUN 29, creatinine 1.6. That was from yesterday. ASSESSMENT AND PLAN: 1. Dr. Lubin had done an esophagogastroduodenoscopy for anemia and hematemesis, found an esophageal stricture. It was dilated. She had a giant hiatal hernia, gastric axial malrotation so I will let her move to the floor. We will take her Lou catheter out and see if we can wean her off the nasal cannula. 2. Chronic kidney disease. Creatinine has hovered between 1.4 and 1.6. We will take her Lou catheter out. 3. Protein calorie malnutrition. We plan to advance her diet. Her esophagus has been dilated. 4. Iron deficiency anemia, which has remained fairly stable. 5. We will continue her Desyrel and her Abilify. I think that is for depression and anxiety. Note that she had Escherichia coli grow from the urine which was, I think, asymptomatic. We are treating her for an asymptomatic urinary tract infection. She is still on Zosyn 3.375 g intravenous every 6 hours since the . I feel like we can probably stop that. cc: Maximino Leija MD
[2018-12-08] MEDS: MORPHINE IV PRN (09:34)
[2018-12-08] MEDS: NORCO-5 PO PRN ×2 (11:28→18:21)
[2018-12-08] MEDS: DESYREL PO SCH (22:16)
[2018-12-08] MEDS: REMERON PO SCH (22:16)
[2018-12-08] MEDS: ZANAFLEX PO SCH (22:16)
[2018-12-09] MEDS: ZOFRAN IV PRN (02:30)
[2018-12-09] MEDS: NORCO-5 PO PRN (02:30)
[2018-12-09] MEDS: XOPENEX NEB INH SCH ×2 (03:30→10:54)
[2018-12-09] MEDS: ATROVENT NEB INH SCH ×2 (03:30→10:54)
[2018-12-09 07:27] VITALS: BP 148/81
[2018-12-09] MEDS: ICAR-C PO SCH (08:29)
[2018-12-09] MEDS: PROTONIX IV SCH (08:29)
[2018-12-09] MEDS: CYMBALTA PO SCH (08:29)
[2018-12-09] MEDS: COLACE PO SCH (08:29)
[2018-12-09] MEDS: VITAMIN B-1 PO SCH (08:29)
[2018-12-09] MEDS: THERA M PLUS PO SCH (08:30)
[2018-12-09] MEDS: MIRALAX PO SCH (08:30)
[2018-12-09] MEDS: ABILIFY PO SCH (10:27)
--- NOTE | 2018-12-09 10:35 | DISCHARGE SUMMARY ---
ADMISSION DATE: 12/05/2018 DISCHARGE DATE: 12/09/2018 HISTORY OF PRESENT ILLNESS: This is a 68-year-old followed by Dr. George, also Dr. Keagan Bolden. She comes from [facility]. She presented with nausea and vomiting coffee-ground emesis with a medical history of hypertension. Psychiatric history is questionable. Congestive heart failure, gastroesophageal reflux disease, large hiatal hernia, esophageal stricture, duodenal ulcer, chronic kidney disease stage 3A, history of alcohol use, severe osteoporosis, multiple thoracic lumbar fractures and iron-deficiency anemia who presents with complaint of abdominal pain in bilateral upper quadrants and nausea and vomiting that started around 6 o'clock p.m. until about 2 o'clock a.m. with coffee ground color. Continues with the nausea and stomach pain. She had a stool sample that was shown to be positive for occult blood. Her hemoglobin and hematocrit were slightly low at 9 and 31. Vital signs were stable. She was a little tachycardic. Imaging did not show any obvious source of blood. She had a history of an EGD in February [address] Lubin that showed a duodenal ulcer that could be the source. She was not on any anticoagulant, has not been taking ibuprofen or any erosive-type medications, and she had stopped drinking in May of 2018. She did have a spell where she vomited coffee-ground emesis a few months ago, and not too long after, she started staying a [facility] in May of 2018. She still has some right upper and left upper quadrant abdominal pain and we felt it could be a duodenal ulcer that was bleeding. PAST MEDICAL HISTORY: Once again reviewed: 1. Hypertension. 2. Psychiatric issues. 3. Questionable congestive heart failure. 4. Gastroesophageal reflux disease with large hiatal hernia. 5. 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 6. Esophageal stricture in February 2016. 7. History of alcohol abuse, quit May of 2018. 8. Osteoporosis and chronic left sacral and inferior pubic rami fracture, multiple thoracolumbar compression fractures. 9. Iron-deficiency anemia, May of 2018 received 2 packs of red blood cells. 10. Chronic kidney disease stage 3A. PAST SURGICAL HISTORY: 1. Bilateral hip replacement. 2. Status post appendectomy. 3. Tonsillectomy. 4. Tubal ligation. 5. EGD per Dr. Lubin in [place] of 2016 for food impaction. Results showed severe esophagitis, large hiatal hernia, esophageal stricture, duodenal ulcer and duodenal stenosis. The patient was admitted. ADMISSION DIAGNOSES: 1. Gastrointestinal bleed likely due to duodenal ulcer with a history of duodenal ulcer in the past. CT scan showed constipation. X-rays showed constipation. She had a history of coffee- ground emesis since 6 o'clock p.m. on the day of admission to about 2 o'clock in the morning improved with Zofran and Pepcid. 2. Iron-deficiency anemia with suspected blood loss anemia. The plan was to follow hematocrit and hemoglobin. 3. Acute kidney injury. She has underlying chronic kidney disease stage 3A and BUN was 23, creatinine 1.3 with a GFR of 40. Baseline is usually 0.9 to 1.2, so plan was to give her hydration and transfuse as necessary. 4. Questionable congestive heart failure. Echocardiogram was obtained. ProBNP was 1954. 5. Protein calorie malnutrition. Plan was to evaluate nutrition and see if we could get her p.o. intake to improve. 6. Severe osteoporosis. Multiple thoracolumbar compression fractures. Chronic left sacral and inferior pubic rami fracture with repair of both hips in the past. No new fractures on this admission. 7. Gastroesophageal reflux disease, large hiatal hernia. Was put on proton pump inhibitor, Protonix IV. 8. Hypertension. Blood pressures were followed and controlled. 9. Psychiatric issues. Continue her Abilify, Desyrel, Remeron, and Cymbalta. 10.She was put on SCDs for DVT prophylaxis. DIAGNOSTIC DATA: CT of the abdomen and pelvis and chest: Large hiatal hernia, trace pleural effusions, bilateral atelectasis, fibrosis with questionable small infiltrates, multiple thoracic compression fractures, mild constipation. Her bones were osteopenic. Echocardiogram was done on 12/05/2018, shows hyperdynamic left ventricle, sclerosis of the aortic valve without definite stenosis, impaired left ventricular relaxation, pulmonary pressure of 34 mmHg. HOSPITAL COURSE: Dr. Lubin was following, gave her some packed red blood cells transfusion and followed her hematocrit and hemoglobin. She had an EGD done on 12/07/2018 that showed esophageal stricturing which was dilated, giant hiatal hernia, gastric axial malrotation. She felt better, was doing better, and renal function/creatinine hovered between 1.4 and 1.6. Hemoglobin and hematocrit stable, hemoglobin 10, hematocrit 31. It was felt she could go back to [place] on 12/09/2018. DISCHARGE MEDICATIONS: 1. Will let her use Tylenol p.r.n. 2. She is on Abilify 2 mg p.o. each morning. 3. Colace 100 mg daily. 4. Cymbalta 60 mg a day. 5. Kodak 5 mg q.6 h. p.r.n. 6. Icar-C one a day. 7. Xopenex q.6 h. p.r.n. 8. Remeron 15 mg at bedtime. 9. Multivitamin one a day. 10. MiraLAX 17 g a day. 11. Thiamine 100 mg p.o. daily. 12. Zanaflex 4 mg at bedtime. 13. Desyrel 50 mg at bedtime. cc: Maximino Leija MD
--- NOTE | 2018-12-09 11:24 | Diag Imaging Result Doc PS360 ---
CHEST-PORTABLE - 12/09/2018 INDICATION: bed placement COMPARISON: 12/05/2018 FINDINGS: There is probably a hiatal hernia. Heart size is top normal. Pulmonary vascularity is somewhat congested. Lung volumes are much lower. There is a new area of atelectasis in the medial right lung base. No pneumothorax or significant pleural effusion. IMPRESSION: Lower lung volumes. Nonspecific atelectasis in the right lung base. Electronically signed by Juliocesar Kuhn 12/09/2018 11:22 AM
--- NOTE | 2018-12-09 12:12 | PROGRESS NOTE ---
DATE: 12/09/2018 SUBJECTIVE: Patient states she is feeling better. She had an EGD on 12/07/2018. Indications for anemia and hematemesis. Findings showed an esophageal stricture/ring with dilation performed and a giant hiatal hernia with gastric axial malrotation. The patient is currently receiving proton pump inhibitor. Her symptoms have improved. OBJECTIVE: Vital Signs: Temperature 98.8, pulse 84, respirations 16, blood pressure 148/81. Generally, the patient is awake and alert in no acute distress. LABORATORY: Hematology: WBC 5.64, hemoglobin 10.2, hematocrit 31.2, MCV 90.4, platelets 241,000. Chemistry: Sodium 144, potassium 4.2, chloride 110, CO2 of 20, BUN 29, creatinine 1.6. EGD on 12/07/2018 showed esophageal stricture with dilation performed and a giant hiatal hernia with gastric axial malrotation. Recommend to continue PPI. Follow anti-reflux measures. Follow up with us in the office after discharge. Further plans will be made according to her progress. I have discussed this case with Dr. Lubin. Dictated by CHAKA Khan for Layo Lubin MD cc: CHAKA Rodriguez MD
== END 2018-12-09 13:20 | DRG 378 ==
LOC: ED 03:38 → EDIPHOLD 08:34 → SUATTDRO 08:34 → 3S 19:47 → 3N 12-08 09:50
PROVIDERS: ATTEND Emergency Medicine
CPT/HCPCS: 36415; 36430; 51702; 71010; 71045; 71250; 74022; 74176; 80048; 80053; 81001; 82270; 82570; 82607; 82728; 82746; 83540; 83550; 83605; 83690; 83735; 83880; 84145; 84300; 84439; 84443; 84540; 85014; 85018; 85025; 85610; 85730; 86850; 86900; 86901; 86920; 87040; 87077; 87088; 87186; 87275; 87276; 87804; 93005; 93306; 94640; 94761; 94799; 96365; 96366; 96375; 97162; 97530; 99285; A9270; C9113; J2270; J2405; J2543; J7030; P9016; S0028; S0164

== ENCOUNTER 2019-06-28 02:24 | Inpatient (IN) ==
[2019-06-28] MEDS ORDERED: ZOFRAN IV ONE (02:45)
[2019-06-28] MEDS ORDERED: NS 1,000 ML IV ONE (02:47)
[2019-06-28] MEDS ORDERED: PHENERGAN IV ONE ×2 (03:04)
[2019-06-28] MEDS ORDERED: SODIUM CHLORIDE 0.9% INJ ONE ×3 (03:04→03:10)
--- NOTE | 2019-06-28 03:04 | PROVIDER DOCUMENTATION ---
HPI-Abdominal Pain/GI Problem - General Chief Complaint: GI Bleed Stated Complaint: upper gib Time Seen by Provider: 06/28/19 02:41 Allergies/Adverse Reactions: Patient Allergies Allergy/AdvReac Type Severity Reaction Status Date / Time codeine Allergy ITCHING Verified 07/20/16 15:40 Home Medications: Home Medication List Medication Instructions Recorded Confirmed Last Taken Type Cyanocobalamin 1,000 microgm IM Q7D #0 vial 02/07/16 12/05/18 06/06/18 Rx Docusate Sodium [Colace] 100 mg PO DAILY #0 capsule 02/07/16 06/28/19 06/06/18 Rx Folic Acid 1 mg PO DAILY #0 tablet 02/07/16 06/28/19 06/06/18 Rx Magnesium Hydroxide [Milk of 30 ml PO DAILY PRN PRN #0 udc 02/07/16 12/05/18 06/06/18 Rx Magnesia] Tizanidine [Zanaflex] 4 mg PO QHS #0 tablet 02/07/16 06/28/19 06/06/18 Rx Ranitidine [Zantac] 150 mg PO BID #0 07/22/16 12/05/18 06/06/18 Rx Multivitamin with Iron [Daily 1 each PO DAILY #30 tablet 08/19/16 06/28/19 06/06/18 Rx Vitamin + Iron] Iron Carbonyl/Ascorbic Acid 1 each PO DAILY tablet 05/30/18 12/05/18 06/06/18 Rx [Icar-C] Thiamine [Vitamin B-1] 100 mg PO DAILY tablet 05/30/18 12/05/18 06/06/18 Rx Polyethylene Glycol 3350 [Miralax] 17 gm PO DAILY 12/05/18 06/28/19 Unknown History Acetaminophen [Tylenol] 650 mg PO Q6H PRN PRN tablet 12/09/18 Unknown Rx Ipratropium [place] Neb [Atrovent 0.5 mg INH RTQ6H neb 12/09/18 Unknown Rx Neb] Alendronate [Fosamax] 1 tab PO DIRECTED 06/28/19 06/28/19 Unknown History Calcium Carbonate/Vitamin D3 1 tab PO DAILY 06/28/19 06/28/19 Unknown History [Calcium 600 + Vit D Tablet] Esomeprazole [Nexium] 1 tab PO QHS 06/28/19 06/28/19 Unknown History Lactobacillus Rhamnosus GG 1 cap PO DAILY 06/28/19 06/28/19 Unknown History [Culturelle] Ondansetron [Zofran] 1 tab PO Q6H PRN 06/28/19 06/28/19 Unknown History Sucralfate [Carafate] 1 tab PO DIRECTED 06/28/19 06/28/19 Unknown History Aripiprazole [Abilify] 2 mg PO QAM #30 tab 06/30/19 Unknown Rx CefDINIR [Omnicef] 300 mg PO BID #10 cap 06/30/19 Unknown Rx Divalproex E.r. [Depakote ER] 1 tab PO QHS #30 tab 06/30/19 Unknown Rx Fluoxetine HCl [Prozac] 1 tab PO DAILY #30 cap 06/30/19 Unknown Rx Hydrocodone/APAP 5 mg/325 mg 1 ea PO Q6H PRN PRN 10 Days #40 tab 06/30/19 Unknown Rx [[place]-5] Mirtazapine [Remeron] 15 mg PO QHS #20 tab 06/30/19 Unknown Rx Trazodone [Desyrel] 50 mg PO QPM PRN PRN #30 tab 06/30/19 Unknown Rx - History of Present Illness-ABD Nature of Presenting Problems: A 69 Y/O FEMALE PRESENTS WITH C/O NAUSEA AND BROWN EMESIS SINCE WEDNESDAY EVENING. PER EMS WHEN THEY REACHED HOME THEY SAW BROWN EMESIS. THE PT SAYS SHE THREW SEVERAL TIMES. FEELING DIZZY. DENIES ANY CP OR SOB. DENIES ANY FEVER OR CHILLS OR COUGH. HAS MILD ABD PAIN. PER PT SHE HAD SIMILAR SYMPTOMS IN THE PAST Abdominal Pain Onset Location: reports: epigastric Pain Radiation: reports: no radiation Quality of Pain: reports: dull Severity in ED: reports: mild Onset/Duration: reports: 2 days ago Timing: reports: still present Activities at Onset: reports: none Exposure to sick contacts?: No Modifying Factors: improves with: nothing Associated Symptoms: reports: dizziness, vomiting. denies: chest pain, constipation, cough, diaphoresis, diarrhea, EENT symptoms, fatigue, fever/chills, genitourinary problems, headaches, heartburn, joint pain, sinus congestion/drainage, nausea, seizure, weakness Rectal Bleeding: denies: bright red blood on paper Emesis Description: reports: coffee grounds Similar Symptoms Previously?: Yes Recently seen or treated by another doctor?: No Review of Systems - Adult - REVIEW OF SYSTEMS - ADULT Constitutional: reports: fatique. denies: fever, night sweats Eyes: denies: no symptoms reported Ears, Nose, Mouth & Throat: denies: no symptoms reported Cardiovascular: denies: no symptoms reported, chest pain Respiratory: denies: no symptoms reported Gastrointestinal: reports: see HPI, diarrhea, nausea, poor appetite, rectal bleeding, vomiting. denies: abdominal pain, constipation Genitourinary: denies: no symptoms reported Musculoskeletal: denies: no symptoms reported Integumentary: denies: no symptoms reported Neurological: denies: no symptoms reported Psychiatric: denies: no symptoms reported Endocrine: denies: no symptoms reported Hematologic/Lymphatic: denies: no symptoms reported Allergic/Immunologic: denies: no symptoms reported Past History - Adult - PAST MEDICAL HISTORY-ADULT Review of Records: reports: Old Records Reviewed, Nursing Assessment Review, Medications Reviewed, Social history reviewed & non-contributory. Major Childhood Illnesses: reports: denies history Cardiovascular: reports: CHF Respiratory: reports: denies history Gastrointestinal: reports: denies history Obstetrical/Gynecological: reports: denies history Genitourinary: reports: denies history Musculoskeletal: reports: arthritis, chronic pain, intervertebral disc disease, neck/back injury, osteoporosis, spinal fracture Neurological: reports: denies history Psychiatric: reports: depression, psychiatric problems Endocrine/Immune: reports: denies history Other Conditions: reports: denies history - PRIOR SURGERIES/PROCEDURES Surgical/Procedure History: reports: none - IMMUNIZATION STATUS Childhood Immunizations: See Nurse Assessment Flu Vaccine: See Nurse Assessment - FAMILY HISTORY Family History: reviewed, not pertinent Physical Exam-General - PHYSICAL EXAM-ADULT Initial Vital Signs Reviewed: Yes - CONSTITUTIONAL General Appearance: alert, no apparent distress - EYES Eyes: PERRL/EOMI, pale conjunctivae - HEAD, EARS, NOSE, MOUTH & THROAT HENMT: normocephalic/atraumatic, moist mucous membranes, normal ENT inspection, pharynx normal - NECK Neck: supple, normal inspection - RESPIRATORY Respiratory: lungs clear, normal breath sounds, no respiratory distress, no accessory muscle use - CARDIOVASCULAR Cardiovascular: regular rate, rhythm, no edema - GASTROINTESTINAL (ABDOMEN) Abdominal Exam: soft, tenderness (MILD EPIGASTRIC). negative: distended, guarding, rigid, rebound - MUSCULOSKELETAL Back Exam: no CVA tenderness, no vertebral tenderness Extremity: no pedal edema Peripheral Pulses: radial (R): 2+, radial (L): 2+ - SKIN Integumentary: normal color, warm/dry - NEUROLOGIC Neurologic: grossly normal - PSYCHIATRIC Psych/Mental Status: normal mood/affect, oriented x 3 Progress - PLAN OF CARE/RESULTS Progress/Plan/Lab Results: Vital Signs - 8 hr 06/28/19 02:38 Temperature 98.5 F Pulse Rate 98 H Respiratory Rate 20 Blood Pressure 144/105 O2 Sat by Pulse Oximetry 98 Orders Category Date Time Status ED: Orthostatic Vital Signs (E DIRECTED Care 06/28/19 02:48 Ordered CBC WITH ELECTRONIC DIFF [HEME] Stat Lab 06/28/19 02:46 Uncollected COMPREHENSIVE METABOLIC PANEL [CHEM] Stat Lab 06/28/19 02:46 Uncollected PROTIME WITH INR [COAG] Stat Lab 06/28/19 02:46 Uncollected PTT [COAG] Stat Lab 06/28/19 02:46 Uncollected TYPE & SCREEN [BBK] Stat Lab 06/28/19 02:46 Uncollected Ns 1000 ml IV Bolus X1 Med 06/28/19 02:47 Ordered 0.9% Sodium Chloride Inj [Ns] 1,000 ml IV 999 mls/hr Ondansetron [Zofran] Med 06/28/19 02:45 Once 4 mg IV NOW ONE Result Diagrams: 06/29/19 06:39 06/29/19 06:39 - REASSESSMENT Reassessment #1 Time Reassessed: 04:30 Status: improving Reassessment Comment: NAUSEA CONTROLLED AFTER PHENERGAN - CONSULTS/PCP/HOSPITALIST Notification #1 *Consult/PCP/Hospitalist*: D/W DR MCKENZIE Time Discussed: 04:50 Consult Disposition: Admit Departure - Departure Date of Disposition Decision: 06/28/19 Time of Disposition Decision: 04:54 DIAGNOSIS: GI bleed, Vomiting Disposition: ADMITTED INPATIENT 09 Certified Medical Emergency: Emergent Condition: Stable - Critical Care Note This patient required my direct & personal management of CC.: No Attestation - Physician/ ISIAH Attestation Patient care was provided by Advanced Practice Provider:: No The physician spent face to face time with patient:: Yes Advanced Practice Provider documentation review:: Supervising physician onsite and consulted in the evaluation and care of this patient. The physician did have a face to face encounter with the patient.
[2019-06-28] MEDS ORDERED: SODIUM CHLORIDE 0.9% 10 ML ONE (03:09)
[2019-06-28] MEDS ORDERED: PHENERGAN ONE (03:09)
[2019-06-28] MEDS ORDERED: CARAFATE LIQUID PO ONE (03:10)
[2019-06-28] MEDS ORDERED: PROTONIX IV ONE (03:10)
[2019-06-28 03:12] LABS: BASO# 0.01 X1000 (0.0-0.2); BASO% 0.2 % (0.0-0.8); EOS# 0.06 X1000 (0.0-0.7); EOS% 1.1 % (0.0-10.0); HEMATOCRIT 36.9 % (37.0-47.0); HEMOGLOBIN 12.2 g/dL (12.0-16.0); LYMPH% 24.3 % (20.5-51.1); MCHC 33.1 g/dL (33-37); MCV 90.9 FL (81-99); MONO# 0.34 X1000 (0.11-0.59); MONO% 6.3 % (1.7-9.3); MPV 9.6 FL (7.4-10.4); NEUT# 3.65 X1000 (1.4-6.5); NEUT% 68.1 % (42.2-75.2); PLT 269 X1000 (130-400); RBC 4.06 XMIL (4.2-5.4); RDW 13.9 % (11.5-14.5); WBC 5.36 X1000 (4.8-10.8)
[2019-06-28 03:19] LABS: INR 0.98; PROTIME 13.1 Seconds (11.0-16.0)
[2019-06-28 03:20] LABS: PTT 31.6 Seconds (22.3-41.8)
[2019-06-28 03:45] LABS: ALB/GLOB RATIO 1.2; CALCIUM 9.2 mg/dL (8.8-10.2); CREATININE 1.5 mg/dL (0.5-0.9); POTASSIUM 4.5 mmol/L (3.5-5.1); TOTAL BILIRUBIN 0.32 mg/dL (0.20-1.00); TOTAL PROTEIN 7.3 g/dL (6.3-8.3)
--- NOTE | 2019-06-28 06:31 | HISTORY AND PHYSICAL ---
PRIMARY CARE PHYSICIAN: Unknown. CHIEF COMPLAINT: Throwing up blood. HISTORY OF PRESENTING ILLNESS: A 69-year-old female with a history of hypertension, CHF, GERD, duodenal ulcers, and alcohol abuse in the past, who had presented to the emergency department from [facility] due to patient throwing up blood. The patient states that she was nauseated and did not feel well. She was evaluated in the emergency department. She had a Hemoccult done that was positive. Due to her presenting symptoms, it was thought that she would need admission for further management. At the time of my examination, patient denied any headache, fever, chills, chest pain, shortness of breath, or any weight changes, but complained of throwing up blood and being nauseated. PAST MEDICAL HISTORY: Includes hypertension, CHF, GERD, chronic kidney disease stage 3, history of alcohol abuse in the past, duodenal ulcers. PAST SURGICAL HISTORY: Bilateral hip replacement, appendectomy. ALLERGIES: Codeine. CURRENT MEDICATIONS: Abilify 2 mg p.o. q.a.m., Cymbalta 60 mg p.o. daily, folic acid 1 mg p.o. daily, [place] 5 one p.o. q.6 hours, Remeron 50 mg p.o. at bedtime, pantoprazole 40 mg p.o. b.i.d., Zantac 150 mg p.o. b.i.d., thiamine 100 mg p.o. daily, Zanaflex 4 mg IV at bedtime, trazodone 50 mg p.o. at bedtime. SOCIAL HISTORY: She is a former smoker. History of alcohol abuse in the past. Denies any illicit drug use. She is currently not ambulatory and resides at [facility]. FAMILY HISTORY: No history of coronary artery disease. REVIEW OF SYSTEMS: Fourteen-point review of system as listed in HPI. Other systems negative. PHYSICAL EXAMINATION: GENERAL: Cooperative, friendly female. She is resting comfortably now. VITAL SIGNS: Temperature 98.5 degrees, pulse 90, respirations 20, blood pressure 144/105. HEENT: Atraumatic, normocephalic. Extraocular movements intact. PERRLA. NECK: Supple. CHEST: Clear to auscultation. CARDIOVASCULAR: Regular rate and rhythm. ABDOMEN: Soft. Positive bowel sounds. EXTREMITIES: No edema. NEUROLOGIC: She is awake, alert, oriented x3. GENITOURINARY: No bladder disease. SKIN: Warm. LABORATORIES AND STUDIES: Sodium 144, potassium 4.5, chloride 102, CO2 is 29, BUN is 22, creatinine is 1.5. Glucose 117. WBCs 5.36, hemoglobin 12.2, hematocrit 36.9, platelets 269,000. ASSESSMENT: A 69-year-old female with a history of hypertension, CHF, chronic kidney disease, gastroesophageal reflux disease, and duodenal ulcers who had presented to emergency department with 1-day history of throwing up blood. She was evaluated in the emergency department. She had a Hemoccult that was positive. Due to her presenting symptoms with suspicion of gastrointestinal bleed, she will require admission for further management. 1. Suspected upper gastrointestinal bleed. 2. Hypertension. 3. Chronic kidney disease stage 3. 4. Gastroesophageal reflux disease. PLAN: 1. We will admit patient to medical floor with telemetry. 2. We will keep patient NPO. 3. Monitor H and H closely. 4. Consult Gastroenterology. 5. Monitor blood pressure. 6. We will monitor her renal function. 7. We will put patient on a PPI. 8. Put patient on DVT prophylaxis, SCDs. 9. We will continue to follow and reassess, make further recommendation based on patient's clinical course. cc: Teo Reyes MD
--- NOTE | 2019-06-28 07:01 | Diag Imaging Result Doc PS360 ---
EXAM: CHEST-1 VIEW 06/28/2019 HISTORY: CP TECHNIQUE: AP portable at 0333 COMMENT: There has been some improvement in the atelectasis and/or pneumonia present previously in the right lower lobe on 12/09/2018. There is a large hiatal hernia. There is platelike opacity in the left base which has not changed significantly since the previous study and may be related to fibrosis. Otherwise are has been no significant change. IMPRESSION: Hiatal hernia. Fibrotic scars in the left lower lobe. Electronically signed by Esequiel Casillas 06/28/2019 6:58 AM
[2019-06-28] MEDS: NS 1,000 ML IV SCH ×2 (07:10→21:44)
[2019-06-28 15:41] LABS: HEMATOCRIT 29.2 % (37.0-47.0); HEMOGLOBIN 9.7 g/dL (12.0-16.0)
--- NOTE | 2019-06-28 16:39 | GASTROENTEROLOGY CONSULTATION ---
DATE: 06/28/2019 REASON FOR CONSULTATION: Hematemesis. HISTORY OF PRESENT ILLNESS: This is a 69-year-old female who reports onset of symptoms on Wednesday. She reported episode of nausea and vomiting and states she could not eat much. She reported emesis to be dark in color. Symptoms had seemed to improve but on Wednesday evening she had multiple episodes of dark emesis and abdominal pain. She came into the emergency room for further evaluation. She resides at [facility] and has been there for approximately 1 year. Patient states prior to this episode she has been feeling fairly well until she had onset of symptoms on Wednesday with not feeling well, nausea, and episodes of vomiting. Hemoccult on emesis was positive for blood. Patient had previous hospitalization in November of this year with similar symptoms of hematemesis and anemia. Findings of EGD at that time showed esophageal stricture that was dilated, a giant hiatal hernia with gastric axial malrotation but no evidence of gastric ulcers. She had an EGD in February 2016 for acute food impaction with findings of severe esophagitis, esophageal stricture, hiatal hernia and duodenal ulcer with stenosis. Currently patient denies shortness of breath or chest pain. No reported fever. I do not believe she has had any further episodes of vomiting since admission. Hemoglobin and hematocrit are stable, hemoglobin 12.2, hematocrit 36.9. PAST MEDICAL HISTORY: Hypertension, congestive heart failure, gastroesophageal reflux disease, history of duodenal ulcer in 2016, chronic kidney disease, history of alcohol abuse. PAST SURGICAL HISTORY: Bilateral hip replacement, appendectomy. ALLERGIES: Codeine causing itching. MEDICATIONS: 1. Acetaminophen 650 mg every 6 hours as needed. 2. Fosamax 1 tablet as directed. 3. Abilify 5 2 mg every day. 4. Calcium plus vitamin D daily. 5. Vitamin B12 1000 mcg every 7 days. 6. Depakote 1 tablet every night. 7. Colace 100 mg daily. 8. Cymbalta 60 mg daily. 9. Nexium 1 tablet every night. 10. Prozac 1 tablet daily. 11. Folic acid daily. 12. Hydrocodone every 6 hours as needed. 13. Atrovent inhaler. 14. ICAR C daily. 15. Culturelle daily. 16. Magnesium. 17. Milk of magnesia 30 mL daily as needed. 18. Remeron 15 mg every night. 19. Multivitamin with iron daily. 20. Zofran 1 tab every 6 hours as needed. 21. Protonix 40 mg twice a day. 22. MiraLAX 17 g daily. 23. Zantac 150 mg twice a day. 24. Carafate 1 tablet daily as directed. 25. Thiamine 100 mg daily, 26. Zanaflex 4 mg every night. 27. Desyrel 50 mg every night. SOCIAL HISTORY: History of tobacco and alcohol use in the past. She resides at [facility]. REVIEW OF SYSTEMS: Per history of present illness. PHYSICAL EXAMINATION: Vital Signs: Temperature 98.1 degrees, pulse 74, respirations 24, blood pressure 141/71. General: Patient is awake, alert, in no acute distress. She has a friend of her daughters at the bedside. Her daughter had to go back to work. HEENT: Normocephalic, atraumatic. Pupils equal, round, reactive to light. Sclerae nonicteric. Respiratory: Lung sounds essentially clear bilaterally. Cardiovascular: Regular rate and rhythm. Abdomen: Soft. Positive bowel sounds. Mild tenderness with palpation. Extremities: No lower extremity edema noted. Neurologically: Patient is awake and alert, oriented to person, place, and time. DIAGNOSTIC RESULTS: Laboratory: Hematology: WBC 5.36, hemoglobin 12.2, hematocrit 36.9, MCV 90.9, platelets 269,000. Coagulation: Protime 13.1, INR 0.98, PTT 31.6. Chemistry: Sodium 144, potassium 4.5, chloride 102, CO2 29, BUN 22, creatinine 1.5, glucose 117, calcium 9.2, total bilirubin 0.32. AST 14, ALT 7, alkaline phosphatase 82. IMAGING: Chest x-ray, showing hiatal hernia, improvement in atelectasis versus pneumonia. Seen previously in November large hiatal hernia noted. ASSESSMENT AND PLAN: 1. Hematemesis. 2. Hematemesis with occult positive. 3. Gastroesophageal reflux disease. 4. History of duodenal ulcer in 2016. 5. Large hiatal hernia seen on esophagogastroduodenoscopy in November 2018. Esophagogastroduodenoscopy findings showed esophageal stricture that was dilated, giant hiatal hernia with gastric axial malrotation but no evidence of gastric or duodenal ulcers at that time. PLAN: Continue proton pump inhibitor. Monitor for signs of active bleeding. We will repeat esophagogastroduodenoscopy for further evaluation. She may need a surgical referral for large hiatal hernia. I have discussed esophagogastroduodenoscopy procedure with the patient and she wishes to proceed. I have discussed this case with Dr. Lubin. Further plans will be made according to findings. Thank you for this consultation. Dictated by CHAKA Khan for Layo Lubin MD cc: CHAKA Rodriguez MD [facility]
[2019-06-28] MEDS: DESYREL PO PRN (22:42)
[2019-06-28] MEDS: NORCO-5 PO PRN (22:42)
[2019-06-29 00:19] LABS: URINE SOURCE CATH
[2019-06-29 01:08] LABS: BILIRUBIN URINE NEGATIVE (NEGATIVE); BLOOD URINE NEGATIVE (NEGATIVE); COLOR YELLOW; GLUCOSE URINE NEGATIVE (NEGATIVE); KETONE URINE NEGATIVE (NEGATIVE); LEUKOCYTES URINE SMALL (NEGATIVE); NITRITE URINE NEGATIVE (NEGATIVE); PH URINE 6.5; PROTEIN URINE NEGATIVE (NEGATIVE); SP GRAVITY URINE 1.011; TURBIDITY URINE CLEAR (CLEAR); UROBILINOGEN URINE NORMAL (NORMAL)
[2019-06-29 01:09] LABS: UR EPITHELIAL CELLS <10 /HPF (<10); URINE BACTERIA 3+ /HPF; URINE RBC <10 /HPF (<10); URINE WBC <10 /HPF (<10)
[2019-06-29 07:26] LABS: HEMATOCRIT 30.1 % (37.0-47.0); HEMOGLOBIN 9.5 g/dL (12.0-16.0); RBC 3.14 XMIL (4.2-5.4); WBC 3.58 X1000 (4.8-10.8)
[2019-06-29 07:27] LABS: MCH 30.3 PG (27-31); MCHC 31.6 g/dL (33-37); MCV 95.9 FL (81-99); MPV 9.8 FL (7.4-10.4)
[2019-06-29 07:45] LABS: CREATININE 1.3 mg/dL (0.5-0.9); POTASSIUM 3.9 mmol/L (3.5-5.1)
[2019-06-29] MEDS: PROZAC PO SCH (09:34)
[2019-06-29] MEDS ORDERED: XYLOCAINE-MPF 2% ONE (12:10)
[2019-06-29] MEDS ORDERED: DIPRIVAN 1% ONE (12:10)
--- NOTE | 2019-06-29 13:04 | ENDOSCOPY OPERATIVE NOTE ---
[facility] ENDOSCOPY OPERATIVE NOTE , PATIENT: Gay Rosales ADMISSION DATE: 06/29/2019 MR#: [id number] : 1950 [facility] #: [id number] EGD PROCEDURE REPORT PROCEDURE DATE: 06/29/2019 SURGEON: Layo Lubin MD STATUS: inpatient COORDINATE MEASURING MACHINE OPERATOR: Kari Gomes and Ishmael Byrne PREOPERATIVE DIAGNOSIS: The patient is a 69 yr old female here for an EGD due to coffee-ground emesi s and acute post hemorrhagic anemia. PROCEDURE PERFORMED: EGD, diagnostic MEDICATIONS: Per Anesthesia TOPICAL ANESTHETIC: none CONSENT: The patient understands the risks and benefits of the procedure and understands that these r isks include, but are not limited to: sedation, allergic reaction, infection, perforation and/or bleeding. Alternative means of evaluation and treatment include, among others: physical exam, x-rays, and/or surgical intervention. The patient elects to proceed with this endoscopic procedure. HISORY AND PHYSICAL: 06/29/2019 function. Hand hygiene and appropriate measures for infection prevention was taken. After the risks, benefits and alternatives of the procedure were thoroughly explained, Informed consent was verified, confirmed and timeout was successfully executed by the treatment team. The patient was anesthetized with topical anesthesia and the RR21-p70 ([id number]) endoscope was introduced through the mouth and advanced to the second portion of the duoden um. Retroflexion was performed in the stomach and revealed a hiatal hernia. The gastroscope was then slowly withdrawn and removed. ESOPHAGUS: A 10 cm hiatal hernia was noted. Large hiatal hernia with para esophageal component. T he esophagus was otherwise normal. STOMACH: A hiatal hernia was noted. There was no evidence of AVM, ulcer or tumor noted. DUODENUM: The duodenal mucosa showed no abnormalities. SPECIMENS REMOVED: No ADVERSE EVENTS: There were no complications. POSTOPERATIVE DIAGNOSIS: 1. 10 cm hiatal hernia 2. Large hiatal hernia with para esophageal component 3. The esophagus was otherwise normal 4. Hiatal hernia 5. The duodenal mucosa showed no abnormalities RECOMMENDATIONS: 1. Begin an anti-reflux lifestyle: avoid acidic foods and drinks (like coffee a nd soda), do not lie down three hours after eating, elevate the head of your bed 6 to 9 inches, stop smokiing and redu ce weight if needed. 2. Resume current medications 3. Transfer to floor REPEAT EXAM: Layo Lubin MD eSigned: Layo Lubin MD 06/29/2019 1:04 PM cc: PATIENT NAME: Gay Rosales MR#: [id number]
[2019-06-29] MEDS: ZOFRAN IV PRN ×2 (15:50→20:35)
[2019-06-29] MEDS: COMPAZINE IV PRN ×2 (16:47→22:53)
--- NOTE | 2019-06-29 17:17 | PROGRESS NOTE ---
DATE: 06/29/2019 INTERVAL HISTORY: Patient with no further hematemesis. No melena. No new complaints. No acute events overnight. Currently n.p.o. for endoscopy at the time my exam. REVIEW OF SYSTEMS: Twelve point review of systems negative except as per interval history. LABS: WBC 3.5, hemoglobin 9.5, hematocrit 30.1, platelets 220,000. Sodium 144, potassium 3.9, bicarb 25, BUN 17, creatinine 1.3, glucose 77. Urinalysis unremarkable. VITAL SIGNS: T-max 99.7 degrees, pulse 82, respirations 18, blood pressure 147/79, O2 saturation 91% on room air. PHYSICAL EXAMINATION: General: No acute distress. Vital signs: As above. HEENT: Normocephalic, atraumatic. Moist mucous membranes. No cervical adenopathy. Cardiovascular: Regular rate and rhythm. No murmurs noted. Pulmonary: Clear to auscultation bilaterally. Abdomen: Soft. Mild epigastric tenderness without rebound or guarding. Bowel sounds positive. Extremities: Peripheral pulses intact. No clubbing, cyanosis. Neurologic: Cranial nerves are grossly intact. No focal deficits identified. Psychiatric: Normal mood and affect. Asleep but easily arousable. Oriented x3. Skin: No new rashes or lesions identified. ASSESSMENT AND PLAN: 1. Likely upper gastrointestinal bleed, acute posthemorrhagic anemia. Patient with reports of hematemesis. Initial hemoglobin 12.2, dropped to 9.7 after admission, fairly stable this morning at 9.5 and patient without further hematemesis. N.p.o. for endoscopy with GI today. We will see what that shows and go from there. Continue PPI and monitor blood counts and we will see what happens. 2. Hypertension. Acceptable control. Currently off of antihypertensives. Has had some moderate elevations though and if those continue we will likely start her on something tomorrow. 3. Chronic kidney disease 3. Creatinine approximately stable. Monitor. 4. Gastroesophageal reflux disease. Continue PPI as above. 5. Chronic diastolic congestive heart failure. No sign of exacerbation or volume overload at this time.
[2019-06-29] MEDS: DESYREL PO PRN (20:35)
[2019-06-29] MEDS: NORCO-5 PO PRN (20:35)
[2019-06-29] MEDS ORDERED: DEPAKOTE ER PO SCH (21:00)
[2019-06-30] MEDS ORDERED: PRILOSEC PO SCH (07:00)
[2019-06-30] MEDS: PROZAC PO SCH (09:52)
--- NOTE | 2019-06-30 14:21 | GASTROENTEROLOGY PROGRESS NOTE ---
DATE: 06/30/2019 SUBJECTIVE: Patient had EGD on 06/29/2019. Findings showed a 10 cm large hiatal hernia with paraesophageal component. Otherwise normal EGD. OBJECTIVE: Vital Signs: Temperature 98.9 degrees, pulse 79, respirations 18, blood pressure 148/69. General: Patient is awake and alert in no acute distress. LABORATORY DATA: Hematology: WBC 3.58, hemoglobin 9.5, hematocrit 30.1, MCV 95.9. Chemistry: Sodium 144, potassium 3.9, chloride 111, CO2 25, BUN 17, creatinine 1.3, glucose 77. ASSESSMENT AND PLAN: 1. Hematemesis. 2. Gastroesophageal reflux disease. 3. Large hiatal hernia. PLAN: Continue PPI. Recommend to follow strict anti-reflux measures and discussed option of surgical referral. I will discuss this case with Dr. Lubin and further plans will be made as needed. Dictated by CHAKA Khan for Layo Lubin MD cc: CHAKA Rodriguez MD
--- NOTE | 2019-06-30 15:10 | DISCHARGE SUMMARY ---
ADMISSION DATE: 06/28/2019 DISCHARGE DATE: 06/30/2019 CONSULTANTS: Gastroenterology, Dr. Lubin. PROCEDURES: EGD showing a large hiatal hernia but otherwise unremarkable. Previously noted ulcerations appear to have healed. PERTINENT STUDIES: Chest x-ray with no acute process. Initial hemoglobin 12.2, repeat 9.7, further repeat 9.5. Initial creatinine 1.5, discharge creatinine 1.3. Urinalysis negative within normal limits. DISCHARGE DIAGNOSES: 1. Possible upper gastrointestinal bleed. 2. Acute post hemorrhagic anemia. 3. Hypertension. 4. Chronic kidney disease 3. 5. Gastroesophageal reflux disease. 6. Next chronic diastolic congestive heart failure. 7. Possible urinary tract infection. HOSPITAL COURSE: Patient presented initially complaining of coffee-ground emesis. Her initial blood counts were not anemic. She did have a drop immediately afterwards from 12.2 to 9.7, however, subsequently she remained stable with a discharge hemoglobin of 9.5. On previous admission, she had peptic ulcer disease and was concerned this might be the case again, but EGD was largely unremarkable. She had no further coffee-ground emesis after admission. With her initial drop, there was concern for acute post hemorrhagic anemia, but no clear source was found so it may have been dilutional. Discussed with the patient the possibility of further workup including potentially colonoscopy or PillCam. As her bleeding appears to have stopped and she was feeling well, she wished to defer those for now. She is to continue PPI. Initial urinalysis showed only small leukocytes with everything else being within normal limits, but urine culture showing greater than 100,000 units gram-negative rods, so her initial vomiting could have been caused by systemic response to an infection. It was decided to discharge her on a short course of Omnicef. Her other chronic comorbidities were stable during this hospitalization. DISCHARGE VITAL SIGNS: Temperature 98.9 degrees, pulse 79, respirations 18, blood pressure 148/69, O2 saturation 93% on room air. DISCHARGE DIET: Heart healthy. DISCHARGE MEDICATIONS: Nexium 40 mg p.o. at bedtime, calcium carbonate daily, Carafate 1 tablet as needed with meals, Fosamax 70 mg weekly on Wednesday, MiraLAX 17 g daily, Zofran 8 mg tab q.6 hours as needed, Depakote ER 250 mg p.o. at bedtime, Remeron 50 mg p.o. at bedtime, Zanaflex 4 mg p.o. q.8 at bedtime, Abilify 2 mg p.o. q.a.m., Colace 100 mg daily, trazodone 50 mg p.o. q.p.m., folic acid daily, iron tab daily, mag hydroxide daily as needed, [place] 5/325 q.6 hours as needed, Prozac 20 mg p.o. daily, Tylenol 650 as needed, thiamine daily, Zantac 150 mg p.o. b.i.d., Omnicef 300 mg b.i.d. for 5 days. FOLLOWUP AND PLAN: Patient discharging back to facility. Continue PPI. Monitor for further bleeding. If further bleeding occurs, may need colonoscopy or PillCam. Short course of Omnicef for possible urinary tract infection. TIME SPENT: Greater than 30 minutes spent arranging discharge and counseling patient.
[2019-06-30 15:35] VITALS: BP 145/75
== END 2019-06-30 16:45 | DRG 378 ==
LOC: SUPCPDRO → ED 02:24 → SUATTDRO 06:14 → EDIPHOLD 06:14 → 4N 08:44
PROVIDERS: ATTEND Internal Medicine

== ENCOUNTER 2019-10-06 23:39 | Inpatient (IN) ==
--- NOTE | 2019-10-06 23:43 | PROVIDER DOCUMENTATION ---
HPI-General Adult - General Chief Complaint: GI Bleed Stated Complaint: gi bleed Time Seen by Provider: 10/06/19 23:43 Source: patient Allergies/Adverse Reactions: Patient Allergies Allergy/AdvReac Type Severity Reaction Status Date / Time codeine Allergy ITCHING Verified 10/07/19 00:58 Home Medications: Home Medication List Medication Instructions Recorded Confirmed Last Taken Type Cyanocobalamin 1,000 microgm IM Q7D #0 vial 02/07/16 10/07/19 06/06/18 Rx Folic Acid 1 mg PO DAILY #0 tablet 02/07/16 10/07/19 06/06/18 Rx Magnesium Hydroxide [Milk of 30 ml PO DAILY PRN PRN #0 udc 02/07/16 10/07/19 06/06/18 Rx Magnesia] Tizanidine [Zanaflex] 4 mg PO QHS #0 tablet 02/07/16 10/07/19 06/06/18 Rx Ranitidine [Zantac] 150 mg PO BID #0 07/22/16 10/07/19 06/06/18 Rx Multivitamin with Iron [Daily 1 each PO DAILY #30 tablet 08/19/16 10/07/19 Rx Vitamin + Iron] Iron Carbonyl/Ascorbic Acid 1 each PO DAILY tablet 05/30/18 10/07/19 06/06/18 Rx [Icar-C] Thiamine [Vitamin B-1] 100 mg PO DAILY tablet 05/30/18 10/07/19 06/06/18 Rx Acetaminophen [Tylenol] 650 mg PO Q6H PRN PRN tablet 12/09/18 10/07/19 Unknown Rx Calcium Carbonate/Vitamin D3 1 tab PO DAILY 06/28/19 10/07/19 Unknown History [Calcium 600 + Vit D Tablet] Esomeprazole [Nexium] 1 tab PO QHS 06/28/19 10/07/19 Unknown History Lactobacillus Rhamnosus GG 1 cap PO DAILY 06/28/19 10/07/19 Unknown History [Culturelle] Divalproex E.r. [Depakote ER] 1 tab PO QHS #30 tab 06/30/19 10/07/19 Unknown Rx Fluoxetine HCl [Prozac] 1 tab PO DAILY #30 cap 06/30/19 10/07/19 Unknown Rx Mirtazapine [Remeron] 15 mg PO QHS #20 tab 06/30/19 10/07/19 Unknown Rx Ondansetron HCl [Zofran] 4 mg PO Q8H PRN #15 tab 07/30/19 10/07/19 Unknown Rx Alendronate Sodium [Fosamax] 70 mg PO DIRECTED 10/07/19 10/07/19 Unknown History Docusate Sodium [Colace] 100 mg PO DAILY 10/07/19 10/07/19 Unknown History Hydrocodone/Acetaminophen [[place] 1 tab PO Q6-8H PRN PRN 10/07/19 10/07/19 Unknown History 5-325 Tablet] Polyethylene Glycol 3350 [Miralax] 17 gm PO DAILY 10/07/19 10/07/19 Unknown History - History of Present Illness -Gen Adult Nature of Presenting Problems: This is 69yo female who presents with CC of vomiting up black emesis. The patient reports that the onset of her symptoms were yesterday after lunch. The patient reports that at the long term they have tried zofran and phenergan without success. The patient reports that she feels dehydrated and does report some abdominal pain. The patient denies being on a blood thinner and she denies having any liver issues, and reports minimal alcohol use. The patient denies dark or bloody stools. The patient denies any pain other than her stomach. The patient does report hx of gastric ulcer. The patient reports that she has been taking her antacid medications. The patient denies asprin or ibuprofen use. Review of Systems - Adult - REVIEW OF SYSTEMS - ADULT Constitutional: reports: no symptoms reported. denies: fever Eyes: reports: no symptoms reported. denies: eye pain Ears, Nose, Mouth & Throat: reports: no symptoms reported. denies: throat pain Cardiovascular: reports: no symptoms reported. denies: chest pain Respiratory: reports: no symptoms reported Gastrointestinal: reports: abdominal pain, hematemesis, nausea, vomiting. denies: rectal bleeding Genitourinary: reports: no symptoms reported. denies: flank pain Musculoskeletal: reports: no symptoms reported. denies: back pain Integumentary: reports: no symptoms reported Neurological: reports: no symptoms reported. denies: headache/migraines Psychiatric: reports: no symptoms reported Endocrine: reports: no symptoms reported Hematologic/Lymphatic: reports: no symptoms reported Allergic/Immunologic: reports: no symptoms reported Past History - Adult - PAST MEDICAL HISTORY-ADULT Review of Records: reports: Old Records Reviewed Major Childhood Illnesses: reports: denies history Cardiovascular: reports: CHF Respiratory: reports: denies history Gastrointestinal: reports: GI bleed. denies: liver disease Obstetrical/Gynecological: reports: denies history Genitourinary: reports: denies history Musculoskeletal: reports: arthritis, chronic pain, intervertebral disc disease, neck/back injury, osteoporosis, spinal fracture Neurological: reports: denies history Psychiatric: reports: depression, psychiatric problems Endocrine/Immune: reports: denies history Other Conditions: reports: denies history - PRIOR SURGERIES/PROCEDURES Surgical/Procedure History: reports: none - IMMUNIZATION STATUS Childhood Immunizations: See Nurse Assessment Flu Vaccine: See Nurse Assessment - FAMILY HISTORY Family History: reviewed, not pertinent Physical Exam-General - PHYSICAL EXAM-ADULT Initial Vital Signs Reviewed: Yes - CONSTITUTIONAL General Appearance: alert, no apparent distress, thin - EYES Eyes: negative: conjuctival exudate, photophobia, scleral icterus - HEAD, EARS, NOSE, MOUTH & THROAT HENMT: normocephalic/atraumatic, moist mucous membranes, pharynx normal - RESPIRATORY Respiratory: normal breath sounds - CARDIOVASCULAR Cardiovascular: regular rate, rhythm, no edema - GASTROINTESTINAL (ABDOMEN) Abdominal Exam: soft, tenderness (epigastric) - MUSCULOSKELETAL Extremity: non-tender (LE) - SKIN Integumentary: normal color, warm/dry - NEUROLOGIC Neurologic: grossly normal - PSYCHIATRIC Psych/Mental Status: normal mood/affect, normal thought content, normal thought process Progress - PLAN OF CARE/RESULTS Result Diagrams: 10/07/19 00:38 10/07/19 00:38 - REASSESSMENT Reassessment #1 Status: other (Patient with positive gastroccult. Vital signs improved with IVF. Hbg stable. IV protonix given. Discussed the case with the hosptialist team who has accepted the patient.) Departure - Departure Date of Disposition Decision: 10/07/19 Time of Disposition Decision: 02:22 DIAGNOSIS: GI bleed Qualifiers: GI bleed type/associated pathology: unspecified gastrointestinal hemorrhage t ype Qualified Code(s): K92.2 - Gastrointestinal hemorrhage, unspecified Disposition: ADMITTED INPATIENT 09 Certified Medical Emergency: Emergent Condition: Fair Referrals and Follow-Ups: Keagan Bolden III, MD [Primary Care Provider] - - Critical Care Note This patient required my direct & personal management of CC.: No Attestation - Physician/ ISIAH Attestation Patient care was provided by Advanced Practice Provider:: No The physician spent face to face time with patient:: Yes Advanced Practice Provider documentation review:: Supervising physician onsite and consulted in the evaluation and care of this patient. The physician did have a face to face encounter with the patient.
[2019-10-06] MEDS ORDERED: ZOFRAN IV ONE (23:54)
[2019-10-06] MEDS ORDERED: SODIUM CHLORIDE 0.9% INJ ONE (23:54)
[2019-10-06] MEDS ORDERED: PROTONIX IV ONE (23:54)
[2019-10-06] MEDS ORDERED: NS 1,000 ML IV ONE (23:54)
[2019-10-07 01:14] LABS: BASO# 0.01 X1000 (0.0-0.2); BASO% 0.1 % (0.0-0.8); HEMOGLOBIN 12.4 g/dL (12.0-16.0); LYMPH# 0.47 X1000 (1.2-3.4); LYMPH% 5.7 % (20.5-51.1); MCH 29.6 PG (27-31); MCHC 31.8 g/dL (33-37); MCV 93.1 FL (81-99); MONO# 0.23 X1000 (0.11-0.59); MONO% 2.8 % (1.7-9.3); NEUT% 91.4 % (42.2-75.2); PLT 333 X1000 (130-400); RBC 4.19 XMIL (4.2-5.4); RDW 13.6 % (11.5-14.5); WBC 8.31 X1000 (4.8-10.8)
[2019-10-07 01:16] LABS: ALB/GLOB RATIO 1.5; ALBUMIN 4.8 g/dL (3.5-5.0); CREATININE 1.6 mg/dL (0.5-0.9); POTASSIUM 4.4 mmol/L (3.5-5.1); TOTAL BILIRUBIN 0.29 mg/dL (0.20-1.00)
[2019-10-07 01:33] LABS: INR 1.08; PROTIME 14.1 Seconds (11.0-16.0)
[2019-10-07 01:34] LABS: PTT 29.1 Seconds (22.3-41.8)
--- NOTE | 2019-10-07 06:02 | HISTORY AND PHYSICAL ---
ADDENDUM: HISTORY OF PRESENT ILLNESS: The patient is a 69-year-old female who presented to the ER with hematemesis. States she initially started vomiting yesterday after lunch. Zofran and Phenergan were not effective. Denies any aspirin, ibuprofen, or alcohol use. Denies any abdominal pain. Denies any blood in her stool. Currently, she is in no distress, lying in the bed quietly. She does have emesis in her basin that is positive Gastroccult. We are going to admit her to the hospital, keep her NPO, place her on a Protonix drip, IV fluids. We will follow her hemoglobin and hematocrit which currently are quite stable at 12 and 39, creatinine is baseline at 1.6, and we will follow. cc: Balbir Robins MD
[2019-10-07] MEDS ORDERED: ZOFRAN IV PRN (06:23)
[2019-10-07] MEDS ORDERED: TYLENOL PR PRN (06:24)
[2019-10-07] MEDS: NS 1,000 ML IV SCH ×2 (07:37→19:43)
[2019-10-07] MEDS: PROTONIX 80 MG in NS 80 ML IV SCH ×2 (07:37→16:26)
--- NOTE | 2019-10-07 09:11 | Diag Imaging Result Doc PS360 ---
CHEST-1 VIEW - 10/07/2019 INDICATION: epigastric pain and GI bleed COMPARISON: 07/30/2019 FINDINGS: Stable left hemidiaphragm elevation with adjacent atelectasis. Stable large hiatal hernia. No new infiltrates. Heart size and pulmonary vascularity is normal. No large pleural effusion. IMPRESSION: Nonspecific findings. Electronically signed by Juliocesar Kuhn 10/07/2019 9:08 AM
[2019-10-07 09:38] LABS: BASO# 0.02 X1000 (0.0-0.2); BASO% 0.3 % (0.0-0.8); HEMATOCRIT 29.5 % (37.0-47.0); HEMOGLOBIN 9.3 g/dL (12.0-16.0); LYMPH# 1.49 X1000 (1.2-3.4); LYMPH% 24.7 % (20.5-51.1); MCH 29.4 PG (27-31); MCHC 31.5 g/dL (33-37); MCV 93.4 FL (81-99); MONO# 0.63 X1000 (0.11-0.59); MONO% 10.4 % (1.7-9.3); MPV 9.7 FL (7.4-10.4); NEUT# 3.89 X1000 (1.4-6.5); NEUT% 64.6 % (42.2-75.2); PLT 280 X1000 (130-400); RBC 3.16 XMIL (4.2-5.4); RDW 13.5 % (11.5-14.5); WBC 6.03 X1000 (4.8-10.8)
[2019-10-07 10:01] LABS: CALCIUM 8.5 mg/dL (8.8-10.2); CREATININE 1.5 mg/dL (0.5-0.9); IRON SATURATION 17 %; TIBC 238 ug/dL; TOTAL IRON 40 ug/dL (49-151); UNBOUND IRON 198 ug/dL (112-346)
[2019-10-07 12:38] LABS: FERRITIN 37 ng/mL (13-150)
[2019-10-07] MEDS ORDERED: PROTONIX IV SCH (13:00)
[2019-10-07 13:21] LABS: URINE SOURCE CATH
[2019-10-07 13:24] LABS: HEMATOCRIT 29.5 % (37.0-47.0); HEMOGLOBIN 9.4 g/dL (12.0-16.0)
[2019-10-07 13:26] LABS: BILIRUBIN URINE NEGATIVE (NEGATIVE); BLOOD URINE SMALL (NEGATIVE); COLOR YELLOW; GLUCOSE URINE NEGATIVE (NEGATIVE); KETONE URINE 10 mg/dL (NEGATIVE); LEUKOCYTES URINE LARGE (NEGATIVE); NITRITE URINE NEGATIVE (NEGATIVE); PROTEIN URINE TRACE mg/dL (NEGATIVE); SP GRAVITY URINE 1.019; TURBIDITY URINE HAZY (CLEAR); UROBILINOGEN URINE 2 mg/dL (NORMAL)
[2019-10-07 13:30] LABS: UR EPITHELIAL CELLS <10 /HPF (<10); URINE BACTERIA 4+ /HPF; URINE RBC <10 /HPF (<10); URINE WBC TNTC /HPF (<10)
[2019-10-07] MEDS: VENOFER 300 MG in NS 250 ML IV SCH (14:16)
[2019-10-07] MEDS: OFIRMEV 1000 MG/ISOTONIC SOLN 1,000 MG/100 ML BOTTLE IV PRN ×2 (14:30→20:55)
--- NOTE | 2019-10-07 14:53 | PROGRESS NOTE ---
DATE: 10/07/2019 SUBJECTIVE: This morning Ms. Rosales refers to be doing well, denies any new complaints. She said she has not vomited anymore. Ms Robb is known to have large hiatal hernia with paraesophageal component, follows up with Dr. Lubin, came in this time because of vomiting blood. OBJECTIVE: Vital signs: Blood pressure is 123/69, pulse of 93, respirations 18, temperature 97.6 degrees. General: Ms. Rosales is a 69-year-old female, she is in bed, in no distress. HEENT: Mucosa is slightly dry. Anicteric. Acyanotic. Neck: Supple. Chest: Clear to auscultation. Cardiovascular: Regular rate and rhythm. Abdomen: Soft, nontender. Bowel sounds present. Extremities: No pedal edema. DIRECTOR OF IN SERVICE EDUCATION: Patient is awake, alert, oriented. LABORATORY DATA: WBC is 6.03, hemoglobin is down to 9.3, platelet count of 280,000. Chemistry is also reviewed, creatinine is down to 1.5 from 1.6 on admission. The vomit was positive for occult blood. ASSESSMENT AND PLAN: 1. Coffee-grounds emesis, most likely due to upper gastrointestinal bleed. The patient is not currently throwing up. She is on PPI drip and GI has been consulted. We are also going to continue to follow her hemoglobin and hematocrit. If it drops below 7 or if she becomes symptomatic at any point she is going to be transfused. 2. Clinical volume depletion. Patient is on IV fluids. 3. Acute on chronic renal failure. 4. History of large hiatal hernia with paraesophageal component noted. cc: Pérez Packer MD
[2019-10-07] MEDS ORDERED: BLISTEX MEDICATED BERRY LIP BALM TOP PRN (14:55)
--- NOTE | 2019-10-07 16:36 | PROGRESS NOTE ---
DATE: 10/07/2019 SUBJECTIVE: Gay Rosales is a 69-year-old lady with a history of hematemesis. Hemoglobin and hematocrit is stable. She did not have any bleeding and no blood in the stool since she came in. She never had a history of ulcers. Continue Protonix, clear liquids. Will follow her closely. Probably endoscopy Wednesday. We will see her again tomorrow. cc: Michelle Tracey MD
[2019-10-07 18:30] LABS: HEMATOCRIT 29.4 % (37.0-47.0); HEMOGLOBIN 9.2 g/dL (12.0-16.0)
--- NOTE | 2019-10-07 21:46 | HISTORY AND PHYSICAL ---
PRIMARY CARE PROVIDER: Dr. Keagan Bolden. The patient is a resident at [facility] in [place]. DATE AND TIME: 10/07/2019 at 0345. CHIEF COMPLAINT: Coffee-ground emesis, possible GI bleed. HISTORY OF PRESENT ILLNESS: Ms. Rosales is a 69-year-old, female, who presents to the ER this evening with complaints of vomiting of coffee-ground emesis that started earlier in the day. The patient reports though, since , that she has not felt well. She has been having some epigastric pain which she describes as a dull, achy-type pain, though she also reports that she has not had an appetite. She has had intermittent episodes of nausea and vomiting. Though she reports that she has not really eaten anything since , she has been able to keep down some liquids. Though at the [facility], they did give her Zofran and Phenergan, though she continued to have nausea and vomiting as well. She denies any recent complications of constipation or diarrhea. She also denies any known hematochezia or melena. She denies any dizziness, feelings of being lightheaded, near syncope, or syncope. She denies any chest pain, shortness of breath, or cough. She denies any fever, body aches, or chills. She denies any dysuria. She also denies any pain, numbness, tingling, or swelling in extremities. The patient does have some chronic hip and back pain, though she states this is not of new onset and has not worsened. She was recently admitted for a suspected gastrointestinal bleed on 08/28/2019. She was discharged approximately two days later on 06/30/2019. During this admission, she did undergo an EGD, which showed a large hiatal hernia, but was otherwise unremarkable. They did note that her previously noted ulcerations appear to have healed. She denies any use of anticoagulants or antiplatelets. Upon reviewing her medications from the [facility], she is not prescribed any these medications either. She also denies any [id number] use of NSAIDs. Upon evaluation in the ER, the patient was having coffee-ground emesis. I did visualize this myself. She did have an emesis basin at bedside, for which she had been vomiting in that did have a small amount of coffee-ground emesis present. Though since being given antiemetics in the ER, she had not had any further vomiting episodes. They did do a Gastroccult, which was positive. At this time, hemoglobin and hematocrit are stable with a hemoglobin of 12.4, hematocrit of 39, platelet count is 333,000. INR is 1.08. She did have an elevated creatinine of 1.6 with a GFR of 32. This is a slight increase from her previous lab result we have of 1.3. She did receive a 1 L normal saline bolus in the ER as well as 40 of Protonix IV. She will be placed inpatient for admission for further treatment and evaluation of possible upper gastrointestinal bleed. REVIEW OF SYSTEMS: A 14-point review of systems was conducted with the patient and all were negative, except for pertinent positives mentioned above in HPI. PAST MEDICAL HISTORY: 1. Hypertension. 2. Questionable history of congestive heart failure. 3. Gastroesophageal reflux disease with a large hiatal hernia. 4. History of previous GI bleeds. 5. 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 6. Esophageal stricture, February 2016. 7. History of alcohol abuse, though reportedly quit drinking in 2018. 8. Chronic kidney disease. 9. Iron deficiency anemia. 10. Osteoporosis with chronic left sacral and inferior pubic rami fracture, and multiple thoracolumbar compression fractures. PAST SURGICAL HISTORY: 1. Bilateral hip replacement. 2. Appendectomy. 3. Tonsillectomy. 4. Tubal ligation. SOCIAL HISTORY: The patient is a former smoker. She does have a history of alcohol abuse in the past, though reportedly quit drinking in 2018. There is no known illicit drug use. The patient is a resident at [facility] in [place]. FAMILY HISTORY: Positive for her father having a history of lymphoma, though there is no heart disease or diabetes in first-degree relatives. ALLERGIES: Patient has allergy to codeine. HOME MEDICATIONS: 1. Fosamax 70 mg p.o. as directed. 2. Calcium 600 plus vitamin D tablet one tablet p.o. daily. 3. Vitamin B12, 1000 mcg IM q.7 days. 4. Depakote ER 250 mg p.o. at bedtime. 5. Colace 100 mg p.o. daily. 6. Nexium 40 mg p.o. at bedtime. 7. Prozac 20 mg p.o. daily. 8. Folic acid 1 mg p.o. daily. 9. [place] 5 mg 1 tablet p.o. q.6-8 hours p.r.n. for pain. 10. Icar-C one tablet p.o. daily. 11. Culturelle 1 capsule p.o. daily. 12. Milk of Magnesia 30 mL p.o. daily p.r.n. for constipation. 13. Remeron 15 mg p.o. at bedtime. 14. Daily vitamin plus iron 1 tablet p.o. daily. 15. Zofran 4 mg p.o. q.8 hours p.r.n. for nausea. 16. MiraLAX 17 g p.o. daily. 17. Zantac 150 mg p.o. b.i.d. 18. Thiamine 100 mg p.o. daily. 19. Zanaflex 4 mg p.o. at bedtime. DIAGNOSTIC DATA: White blood cell count of 8310, hemoglobin 12.4, hematocrit 39, platelet count is 333,000. PT 14.1, INR 1.08, PTT is 29.1. Sodium 141, potassium 4.4, chloride 96, serum bicarbonate is 24, BUN 32, creatinine 1.6, GFR 32, glucose 129, calcium 10. Liver function tests within normal limits. Gastroccult was positive for blood. Chest x-ray showed a left hemidiaphragm elevation with adjacent atelectasis and a large hiatal hernia, though no new infiltrate. Heart size and pulmonary vascularity was normal. There was no pleural effusion either. This is per Radiology. PHYSICAL EXAMINATION: VITAL SIGNS: Temperature 97.7 degrees, heart rate 101, blood pressure is 111/66, with a MAP of 92. Oxygen saturation is 100% on room air. GENERAL: Ms. Rosales is a pleasant, 69-year-old, elderly female. She is resting in the ER stretcher. She is in no acute distress. She is awake, alert, and able to answer questions appropriately. HEENT: Head is atraumatic, normocephalic. Pupils are equal, round, reactive to light, are 3 mm bilaterally and brisk. Sub-conjunctivae are slightly pale. Oral mucosa is slightly dry. Oropharynx is clear. NECK: Supple. Trachea midline. CARDIOVASCULAR: S1-S2 present. No murmurs, gallops, rubs appreciated, with a slightly tachycardic rate that is regular. PULMONARY: The patient has symmetrical chest expansion bilaterally. Lung sounds are clear to auscultation in bilateral full cortes. ABDOMEN: Soft, nondistended, is nontender, except for she did have some very mild tenderness in the epigastric area. Bowel sounds are present in all 4 quadrants, are normoactive. EXTREMITIES: No cyanosis or edema noted. Pulse, motor, and sensory are intact in all extremities. Pedal and radial pulses are 2+ bilaterally. INTEGUMENTARY: The patient's skin color is slightly pale, though is dry and intact. NEUROLOGICAL: Patient is alert and oriented to person, place, time, and situation. She is able move all extremities. There are no focal neurological deficits noted. ASSESSMENT AND PLAN: 1. Suspected upper gastrointestinal bleed with coffee-ground emesis. For further treatment and evaluation of this, we will place the patient NPO until she is evaluated by Gastroenterology. We will place her on a Protonix drip. She was given a 1 L normal saline bolus. We will continue with normal saline at 100 mL/h. We will recheck a CBC and BMP later on this morning. We will place her on medical floor with continuous cardiac telemetry and frequent vital signs. At this time, the patient is hemodynamically stable, though we will continue to monitor this closely. We have placed a consult with Dr. Tracey with Gastroenterology. We will await his evaluation and further recommendations for management. 2. Nausea and vomiting. We will prescribe p.r.n. antiemetics. 3. Fluid volume depletion. The patient's blood pressure upon arrival was slightly on the low side. She does have chronic kidney disease, though she has had a slight elevation in her creatinine from her baseline. This is likely secondary to gastrointestinal bleed and her nausea and vomiting. She did receive a 1 L normal saline bolus. We will continue with maintenance IV fluids as mentioned above. 4. Acute on chronic kidney disease. The patient's baseline creatinine recently does appear to be anywhere from 1.2 to 1.4, at this time it is 1.6. This is likely secondary to volume depletion. We are administering gentle maintenance IV fluids. We will continue to monitor this closely. We will avoid nephrotoxic medications and renally dose medicines as necessary. 5. Deep vein thrombosis prophylaxis will be provided with sequential compression devices. We will do strict intake and output. We have added, as previously mentioned, CBC and BMP to be repeated later this morning. We have also added an additional order of anemia profile. Further orders and recommendations pending hospital course, diagnostic studies, and physician evaluation. Dictated by CHAKA Bartholomew for Balbir Robins MD cc: Balbir Robins MD [facility]
[2019-10-08] MEDS: PROTONIX 80 MG in NS 80 ML IV SCH (02:33)
[2019-10-08] MEDS: SODIUM CHLORIDE 0.9% INJ SCH ×2 (05:36→18:50)
[2019-10-08] MEDS: NS 1,000 ML IV SCH ×3 (05:36→22:03)
[2019-10-08] MEDS: PROTONIX IV SCH ×2 (05:37→18:50)
[2019-10-08 07:04] LABS: HEMATOCRIT 26.7 % (37.0-47.0); HEMOGLOBIN 8.5 g/dL (12.0-16.0); MCH 30.4 PG (27-31); MCHC 31.8 g/dL (33-37); MCV 95.4 FL (81-99); MPV 9.7 FL (7.4-10.4); RBC 2.8 XMIL (4.2-5.4); RDW 13.7 % (11.5-14.5); WBC 5.81 X1000 (4.8-10.8)
[2019-10-08 07:25] LABS: ALBUMIN 2.9 g/dL (3.5-5.0); CALCIUM 7.5 mg/dL (8.8-10.2); CREATININE 1.3 mg/dL (0.5-0.9); PHOSPHORUS 2.2 mg/dL (2.7-4.5); POTASSIUM 3.7 mmol/L (3.5-5.1)
[2019-10-08] MEDS: VENOFER 300 MG in NS 250 ML IV SCH (09:35)
--- NOTE | 2019-10-08 09:58 | PROGRESS NOTE ---
DATE: 10/08/2019 SUBJECTIVE: This morning, Ms. Rosales refers to be doing a lot better. She says she has not had any more coffee-grounds emesis nor any melenic stool. OBJECTIVE: Vital Signs: Blood pressure is 109/67, pulse of 78, respirations 17, temperature is 98.1 degrees. General: Ms. Rosales is a 69-year-old female. She is in bed. No distress. HEENT: Mucosa is pink and moist. Anicteric. Acyanotic. Neck: Supple. Chest: Good air entry bilaterally. There were no crepitations, no rhonchi. Cardiovascular: Regular rate and rhythm. GI: Abdomen is soft, nontender. Bowel sounds present. Extremities: No pedal edema. FORMING PROCESS LINE WORKER: The patient is awake, alert, and oriented. There is no focal neurological deficit. LABORATORY DATA: WBC is 5.81, hemoglobin is down to 8.5, platelet count of 227,000. Chemistry is also reviewed. Creatinine is down to 1.3. MEDICATIONS: Medications have also been reviewed. No changes. ASSESSMENT: 1. Coffee-ground emesis secondary to upper gastrointestinal bleed, most likely due to Lluvia- Zuleta tears on the background of esophageal hernia. 2. Clinical volume depletion, improving. 3. Acute on chronic renal failure. Creatinine is down to 1.3, which seems to be the patient's baseline. We have cut back on the intravenous fluids. 4. Normocytic anemia with iron deficiency, most likely due to chronic gastrointestinal blood loss. The patient is being given iron infusion. 5. History of large hiatal hernia with paraesophageal component noted. The patient is aware about this. He normally follows up with Dr. Lubin. I am not sure if Surgery has evaluated her before. We will recommend that she follows up with Surgery as well. cc: Pérez Packer MD
[2019-10-08] MEDS: OFIRMEV 1000 MG/ISOTONIC SOLN 1,000 MG/100 ML BOTTLE IV PRN (12:49)
[2019-10-09] MEDS: SODIUM CHLORIDE 0.9% INJ SCH (06:07)
[2019-10-09] MEDS: PROTONIX IV SCH (06:07)
[2019-10-09 07:02] LABS: HEMOGLOBIN 8.7 g/dL (12.0-16.0); MCH 30.3 PG (27-31); MCHC 32.2 g/dL (33-37); MCV 94.1 FL (81-99); MPV 9.8 FL (7.4-10.4); RBC 2.87 XMIL (4.2-5.4); RDW 13.8 % (11.5-14.5); WBC 4.64 X1000 (4.8-10.8)
[2019-10-09 07:15] LABS: ALBUMIN 2.9 g/dL (3.5-5.0); CREATININE 1.1 mg/dL (0.5-0.9); PHOSPHORUS 2.3 mg/dL (2.7-4.5); POTASSIUM 3.1 mmol/L (3.5-5.1)
[2019-10-09] MEDS ORDERED: DIPRIVAN 1% ONE (07:35)
[2019-10-09] MEDS ORDERED: FENTANYL ONE (07:37)
[2019-10-09] MEDS ORDERED: XYLOCAINE-MPF 2% ONE (09:23)
--- NOTE | 2019-10-09 10:11 | OPERATIVE NOTE ---
PROCEDURE DATE: 10/09/2019 PROCEDURE: Esophagogastroduodenoscopy. PREOPERATIVE DIAGNOSIS: History of coffee-ground emesis. POSTOPERATIVE DIAGNOSIS: Esophagitis. Hiatal hernia, mixed. Nilesh lesions. No active bleeding. DESCRIPTION OF PROCEDURE IN DETAIL: After informed consent and adequate intravenous sedation, the scope introduced to the esophagus. There is esophagitis, no Lluvia-Zuleta tear or esophageal varices seen. There is no fresh or old blood seen. In the stomach, there is a large hiatal hernia; part of it is paraesophageal with some redness at the level of the diaphragmatic hiatus suggestive of Nilesh lesions, but no active bleeding anywhere. Duodenum is normal. The scope was withdrawn. The patient tolerated the procedure well without any immediate complications. IMPRESSION: 1. Coffee-ground emesis may be related to the Nilesh. 2. Anemia is probably combination of chronic renal failure and hiatal hernia with Nilesh lesions. Continue iron supplements. cc: MD Layo Braga MD
[2019-10-09] MEDS: VENOFER 300 MG in NS 250 ML IV SCH (10:38)
[2019-10-09 12:20] VITALS: BP 143/82
--- NOTE | 2019-10-09 12:33 | DISCHARGE SUMMARY ---
ADMISSION DATE: 10/06/2019 DISCHARGE DATE: 10/09/2019 DISPOSITION: Back to [facility]. CONSULTATIONS DURING THIS ADMISSION: GI was consulted. The patient was seen by Dr. Tracey. INVASIVE PROCEDURES DONE DURING THIS ADMISSION: EGD showed esophagitis, hiatal hernia mixed, and Nilesh lesions, not active. ADMISSION DIAGNOSES: 1. Suspected upper gastrointestinal bleed. 2. Nausea and vomiting. 3. Volume depletion. 4. Acute kidney injury. DISCHARGE DIAGNOSES: 1. Coffee-ground emesis secondary to upper gastrointestinal bleed from Nilesh lesions. 2. Clinical volume depletion on presentation, improved. 3. Acute on chronic kidney failure. Creatinine is back to baseline. 4. Normocytic anemia with iron deficiency secondary to chronic gastrointestinal bleed. 5. History of large hiatal hernia with paraesophageal component, associated with Nilesh lesions on esophagogastroduodenoscopy. 6. Protein calorie malnutrition. 7. Asymptomatic bacteriuria (Escherichia coli in the urine, but the patient is completely asymptomatic). No need for treatment. DISCHARGE MEDICATIONS: 1. Cyanocobalamin. 2. Folic acid 1 mg p.o. daily. 3. Milk of magnesia. 4. Ranitidine 150 b.i.d. 5. Multivitamin 1 tablet daily. 6. Iron 1 tablet daily. 7. Thiamine 100 mg p.o. daily. 8. Lactobacillus. 9. Mirtazapine 50 mg p.o. at bedtime. 10. Depakote 1 tablet p.o. at bedtime. 11. Colace 100 mg p.o. daily. 12. Alendronate 70 mg p.o. daily. 13. Pantoprazole 40 mg p.o. daily. 14. [place] 5 mg p.o. every 6 to 8 hours p.r.n. PRESENTING COMPLAINT: Coffee-ground emesis. HISTORY OF PRESENTING COMPLAINT: Ms. Rosales is a 69-year-old female who is known to have hiatal hernia and paraesophageal hernia, has been seen by Dr. Lubin before, came in this time because of coffee-ground emesis. The patient was evaluated and was found to have hemoglobin of 12.4, which progressively decreased to 8.5. She did not, however, need any blood transfusion. Hemoglobin and hematocrit started to improve. This morning, it is at 8.7. Ms. Rosales was also found to be remarkably volume depleted with acute on chronic renal failure. Creatinine was at 1.6 on admission. This morning, it is 1.1 after fluid resuscitation. During the hospital course, Ms. Rosales was evaluated by GI. A decision for EGD was taken, and it was successfully done by Dr. Tracey. Impression seems to suggest coffee-ground emesis may be related to the Nilesh, and anemia is probably a combination of chronic renal failure and hiatal hernia with Nilesh lesion. Continue supplement. The patient has been started back on her home medications. She is tolerating them well. We think she is stable for discharge back to the [facility]. She has been advised to follow up with Surgery regarding the paraesophageal hernia. All the discharge instructions have been discussed with her, and she voiced understanding. TIME SPENT: Time spent for discharge was 38 minutes. cc: Pérez Packer MD
[2019-10-09] MEDS ORDERED: PNEUMOVAX 23 IM ONE (12:45)
--- NOTE | 2019-10-09 15:36 | GASTROENTEROLOGY CONSULTATION ---
DATE: 10/07/2019 REASON FOR CONSULT: Upper GI bleed. HISTORY OF PRESENT ILLNESS: Ms. Rosales is a 69-year-old female who has a history of hypertension, chronic kidney disease, iron deficiency anemia, osteoporosis, GERD, hiatal hernia, congestive heart failure, and ulcers. She presented to the ER with complaints of vomiting coffee-grounds emesis that started earlier in the day. She reports that on she did not feel well and she was having some epigastric pain, describing it as a dull aching pain. She also complained that she had no appetite and intermittent episodes of nausea and vomiting. She reports that she has not eaten anything since . She is not able to keep any liquids. [facility] and they gave her some Zofran and Phenergan, but she still continued to have nausea and vomiting. She has not complained of any constipation or diarrhea. She has denied noticing blood in the stools. She has denied any dizziness, fever, shortness of breath, chills, or chest pain. The patient was recently admitted to the hospital with the same issue GI bleed on 06/28/2019 and and endoscopy on 06/29 and they found out that she had a large hiatal hernia and Duodenum showed no abnormalities. The patient's hemoglobin on admission was 12.4 and hematocrit was 39.9 and her hemoglobin and hematocrit started dropping; today it was 9.3 and 29.5. PAST MEDICAL HISTORY: Hypertension, CHF, GERD, hiatal hernia, GI bleeds, duodenal ulcers, esophageal stricture, history of alcohol abuse, chronic kidney disease, iron deficiency anemia, and osteoporosis. PAST SURGICAL HISTORY: Bilateral hip replacement, appendectomy, tonsillectomy, and tubal ligation. SOCIAL HISTORY: The patient is a former smoker and an alcoholic. She has denied any illicit drugs. She is , has 2 kids. FAMILY HISTORY: Her mom had Non-Hodgkin's lymphoma. ALLERGIES: She is allergic to codeine. HOME MEDICATIONS: Vitamin B12 1000 mcg IM, folic acid 1 mg tablet daily, magnesium hydroxide 30 mL p.o. daily, Zanaflex 4 mg at bedtime, Zantac 150 mg twice a day, multivitamin 1 tablet daily, iron 1 tablet daily, thiamine 100 mg p.o. daily, acetaminophen 650 mg p.o. every 6 hours as needed, calcium carbonate 1 tablet daily, Nexium 40 mg 1 tablet at bedtime, Culturelle 1 capsule daily, Depakote 1 tablet at bedtime, Remeron 15 mg at bedtime, Prozac 1 tablet daily, Zofran 4 mg every 6 hours as needed, Colace 100 mg daily, hydrocodone/acetaminophen 5/325 one tablet every 6 to 8 hours as needed, MiraLAX 17 g daily, and Fosamax 70 mg as directed. REVIEW OF SYSTEMS: As per HPI. Otherwise, 12 point review of system is negative. PHYSICAL EXAMINATION: Vital Signs: Temperature 98.3, pulse 98, respirations 20, blood pressure 140/66, oxygen saturation 99% on 2 L nasal cannula. The patient's weight is 106, BMI is 19.4 kg/m2. General: She is alert, oriented x3. Patient just came back from her EGD procedure. She is in no acute distress. HEENT: Pale conjunctivae. No icterus. PERRL. Neck: Supple. Lungs: Clear to auscultation in the anterior cortes. Cardiovascular: Regular rate and rhythm. Abdomen: Soft, mildly distended, nontender. Active bowel sounds heard in all 4 quadrants. Extremities: No clubbing. No cyanosis. No edema. Pedal pulses 2+, present bilaterally. Neurologic: She is alert and oriented x3. Nonfocal. Cranial nerves 2-12 grossly intact. LABORATORY DATA: WBCs 6.03, RBC 3.16, hemoglobin 9.3, hematocrit 29.5, platelet count 280,000. Sodium 144, potassium 4.0, chloride 107, carbon dioxide 20, anion gap 17, BUN 35, creatinine 1.5, Urinalysis on 10/07 showed trace of protein, small amount of blood, large amount of leukocytes. MICROBIOLOGY: Urine culture showed Escherichia coli. Gastric occult blood was positive. IMAGING: Chest x-ray showed nonspecific findings. ASSESSMENT: 1. Gastrointestinal bleed. 2. Nausea and vomiting. 3. Electrolyte imbalance. 4. Acute on chronic kidney disease. 5. Congestive heart failure. 6. Gastroesophageal reflux disease. 7. Ulcers. PLAN: We plan to do an EGD on Wednesday. The patient is currently on Protonix 40 mg IV twice a day. For her nausea, she is on antiemetics, Zofran. The patient's hemoglobin today is 9.3 and 29.5 Further plan of care will be based on EGD findings. We will continue to monitor her CBC, BMP and follow the plan of care for PCP. This plan was discussed with Dr. Tracey. Thank you for your consult. Please call us for any further questions or concerns. Dictated by CHAKA Bhatt for Michelle Tracey MD cc: Michelle Tracey MD [facility]
--- NOTE | 2019-10-10 16:37 | GASTROENTEROLOGY PROGRESS NOTE ---
DATE: 10/08/2019 SUBJECTIVE: Ms. Rosales is a 69-year-old, female resting in bed. She has denied any blood in her stool or in her emesis. She has denied any nausea or vomiting. OBJECTIVE: Vital Signs: Temperature 98.1, pulse 78, respirations 17, blood pressure 109/67, and oxygen saturation 98% on 2 L nasal cannula. Her weight is 106 pounds. BMI is 19.4 kg/m2. General: She is alert and oriented x3, and in no acute distress. HEENT: Pale conjunctivae. No icterus. PERRL. Neck: Supple. Lungs: Clear to auscultation in the anterior cortes. Cardiovascular: Regular rate and rhythm. Abdomen: Soft. Mildly distended, and nontender. Active bowel sounds heard in all 4 quadrants. Extremities: No clubbing, no cyanosis, no edema. Pedal pulses 2+ present bilaterally. Neurologic: She is alert and oriented x3. LABORATORY: WBCs is 5.81, RBC 2.80, hemoglobin 8.5, hematocrit 26.7, and platelet count 227,000. PT 14.1, INR 1.08, sodium 141, potassium 3.7, chloride 109, carbon dioxide 18, anion gap 14, BUN 25, creatinine 1.3, glucose 77, calcium 7.5, and phosphorus 2.2. IMAGING: Chest x-ray showed nonspecific finding. IMPRESSION AND PLAN: GI Bleed N/V Electrolyte imbalance Acute on Chronic kidney disease CHF GERD Ulcers PLAN:. We plan to do an EGD on Wednesday to find out the cause of her GI bleed. The patient is currently on Protonix 40 mg IV twice a day. She is receiving antiemetic, Zofran for her N/V. Her hemoglobin and hematocrit today is 8.5 and 26.7. We will continue to monitor her CBC and BMP and follow the plan of care per PCP. Further plan of care will be based on the EGD findings. Discussed the risks, benefits, and alternatives of the procedure. Patient acknowledged understanding of the plan of care. This plan was discussed with Dr. Tracey. Please call us for any further questions or concerns. Dictated by CHAKA Bhatt for Michelle Tracey MD cc: Michelle Tracey MD [facility]
== END 2019-10-09 15:37 | DRG 378 ==
LOC: SUPCPDRO → ED 23:39 → 4N 10-07 02:49 → SUATTDRO 10-07 02:49
PROVIDERS: ATTEND Internal Medicine